=== PATIENT | female | born 1950 | race Caucasian/White ===

== ENCOUNTER 2016-09-10 10:40 | Outpatient (CLI) | payer OTHER | END 2016-09-10 10:41 | disposition home or self-care (01) | LOC: LAB.WCP 10:40 | PROVIDERS: ATTEND Physician Assistant Medical | DX: E03.9 Hypothyroidism, unspecified (principal) | CPT/HCPCS: 36415; 84443 ==

== ENCOUNTER 2016-11-01 12:11 | Outpatient (CLI) | payer MEDICARE, OTHER | END 2016-11-01 12:12 | disposition critical access hospital (66) | LOC: EMS 12:11 | PROVIDERS: ATTEND Surgery | DX: S01.81XA Laceration without foreign body of other part of head, initial encounter (principal); W01.198A Fall on same level from slipping, tripping and stumbling with subsequent striking against other object, initial encounter; Y93.01 Activity, walking, marching and hiking | CPT/HCPCS: A0425; A0429 ==

== ENCOUNTER 2016-11-01 12:25 | Emergency (ER) | payer MEDICARE, OTHER ==
--- NOTE | 2016-11-01 12:33 | ED Physician Documentation ---
PD HPI Fall - Stated complaint Stated Complaint: GLF - History obtained from History obtained from: Patient - History of Present Illness Mechanism of injury: Slipped. No: Syncope Fall distance: Standing position Where injury occurred: Other ([facility]) Timing - onset: Today ([facility]) Injury(ies) location: Face, Right Upper Extremity (wrist), Right Lower Extremity (knee). No: Chest, Abdomen Quality of pain: Pain Associated symptoms: No: LOC, AMS, Nausea / vomiting Worsens with: Movement, Palpation Contributing factors: No: Anticoagulated, Intoxicated Similar symptoms before: Has not had sx before Recently seen: Not recently seen Review of Systems Eyes: denies: Loss of vision, Decreased vision GI: denies: Nausea, Vomiting Skin: reports: Abrasion (s) Neurologic: denies: Focal weakness, Numbness, Confused, Altered mental status, Headache (just facial pain) PD PAST MEDICAL HISTORY - Past Medical History Cardiovascular: Hypertension Neuro: TIA - Past Surgical History Past Surgical History: Yes General: Cholecystectomy, Appendectomy /[employer] JOBS: Hysterectomy - Present Medications Home Medications: Ambulatory Orders Medication Instructions Recorded Confirmed Aspirin [Aspir 81] 81 mg PO DAILY 08/09/13 11/01/16 Propranolol HCl 40 mg PO DAILY 08/09/13 11/01/16 HYDROcod/ACETAM 5/325 [[place] 5/325] 1 tab PO Q6H PRN #15 tablet 11/01/16 Levothyroxine Sodium [Synthroid] 25 mcg PO DAILY 11/01/16 11/01/16 busPIRone [Buspar] 5 mg PO DAILY 11/01/16 11/01/16 - Allergies Allergies/Adverse Reactions: Allergies Allergy/AdvReac Type Severity Reaction Status Date / Time Sulfa (Sulfonamide Allergy Unknown Verified 08/09/13 09:06 Antibiotics) - Social History Does the pt smoke?: No Smoking Status: Never smoker Does the pt drink ETOH?: Yes Does the pt have substance abuse?: No - POLST Patient has POLST: No PD ED PE NORMAL - Vitals Vital signs reviewed: Yes - General General: Alert and oriented X 3, Well developed/nourished - HEENT HEENT: Other (abrasion forehead with local tenderness) - Neck Neck: Supple, no meningeal sign, No bony TTP, No adenopathy - Cardiac Cardiac: RRR, No murmur - Respiratory Respiratory: Clear bilaterally, Other (no chestwall tenderness) - Abdomen Abdomen: Soft, Non tender, No organomegaly - Back Back: No CVA TTP, No spinal TTP - Derm Derm: Normal color, Warm and dry - Extremities Extremities: Other (right wrist with tenderness dorsally, no limited ROM. Right knee with anterior swelling and effusion, with limited flexion, but no bony deformity. No gross laxity with ligament testing. 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, No motor deficit, No sensory deficit, Normal speech - Psych Psych: Normal mood, Normal affect Results - Vitals Vitals: Vital Signs - 24 hr 11/01/16 13:41 Heart Rate 66 Respiratory 20 Rate O2 Saturation 99 Oxygen O2 Source Room air - Rads (name of study) knee xray Radiology: Prelim report reviewed (normal) wrist xray Radiology: Prelim report reviewed (normal) PD MEDICAL DECISION MAKING - ED course Complexity details: reviewed results, considered differential, d/w patient Departure - Departure Disposition: 01 Home, Self Care Clinical Impression: Contusion of forehead Qualifiers: Encounter type: initial encounter Qualified Code(s): S00.83XA - Contusion of other part of head, initial encounter Right wrist sprain Qualifiers: Encounter type: initial encounter Qualified Code(s): S63.501A - Unspecified sprain of right wrist, initial encounter Contusion of right knee Qualifiers: Encounter type: initial encounter Qualified Code(s): S80.01XA - Contusion of right knee, initial encounter Condition: Stable Record reviewed to determine appropriate education?: Yes Instructions: ED Effusion Knee, ED Sprain Wrist, ED Contusion Face Follow-Up: Bhumika Rosales PA-C [Primary Care Provider] - Prescriptions: HYDROcod/ACETAM 5/325 [[place] 5/325] 1 tab PO Q6H PRN #15 tablet PRN Reason: Pain Comments: A circular towels to the face for swelling. Apply antibiotic ointment to the abrasions 2-3 times a day after cleaning with soap and water. He likely has local headache and some lightheadedness at times related to the injury. For the wrist, gentle range of motion is good. For the knee you can use an Mark wrap to help reduce swelling. Typically the effusion reduces after several days to week. Range of motion and use of it as able. Tylenol or ibuprofen if needed for pains. Add hydrocodone if needed. Follow-up with your primary care in for 5 days if not improved. Discharge Date/Time: 11/01/16 14:16
[2016-11-01 12:35] VITALS: BP 154/75
[2016-11-01] MEDS ORDERED: TETANUS/DIPHTHERIA/PERTUSSIS 0.5 ML SYRINGE IM ONE ×2 (12:40→13:02)
[2016-11-01] MEDS ORDERED: ACETAMINOPHEN 325 MG TABLET PO STA (13:40)
[2016-11-01] MEDS ORDERED: IBUPROFEN 600 MG TABLET PO STA (13:40)
--- NOTE | 2016-11-01 13:44 | XRAY Preliminary Report ---
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 No acute frac ture or subluxation. [facility] SITE ID: [id number]
--- NOTE | 2016-11-01 13:47 | XRAY Report ---
EXAM: RIGHT WRIST RADIOGRAPHY EXAM DATE: 11/01/2016 01:16 PM. CLINICAL HISTORY: Fall and caught fall with hands. COMPARISON: None. TECHNIQUE: 4 views. FINDINGS: Bones: There is sclerosis and spurring at the first carpal metacarpal joint. No cortical step-off or acute fracture. Joints: There is moderate joint space narrowing of the first carpal metacarpal joint. Soft Tissues: No abnormal foreign body. 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 No acute frac ture or subluxation. [facility] Referring Provider Line: [phone] SITE ID: [id number]
[2016-11-01] MEDS ORDERED: IBUPROFEN 600 MG TABLET PO ONE (13:48)
[2016-11-01] MEDS ORDERED: ACETAMINOPHEN 325 MG TABLET PO ONE (13:48)
--- NOTE | 2016-11-01 13:48 | XRAY Preliminary Report ---
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 No fracture or subluxation. [facility] SITE ID: [id number]
--- NOTE | 2016-11-01 13:51 | XRAY Report ---
EXAM: RIGHT KNEE RADIOGRAPHY EXAM DATE: 11/01/2016 01:31 PM. CLINICAL HISTORY: Accidental fall onto hands/knees. COMPARISON: None. TECHNIQUE: 4 views. FINDINGS: Bones: There is chronic mild/moderate spurring of the medial and lateral femoral condyle. No fracture . No lytic or destructive bone lesion. Joints: Joint space and alignment appear satisfactory. Soft Tissues: No abnormal soft tissue calcification. 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 No fracture or subluxation. [facility] Referring Provider Line: [phone] SITE ID: [id number]
== END 2016-11-01 14:16 | disposition home or self-care (01) ==
LOC: EDUNIT# → ED 12:25
DX: S00.83XA Contusion of other part of head, initial encounter (principal); S63.501A Unspecified sprain of right wrist, initial encounter; S80.01XA Contusion of right knee, initial encounter; W18.30XA Fall on same level, unspecified, initial encounter; Y93.01 Activity, walking, marching and hiking; Y92.830 Public park as the place of occurrence of the external cause; Z23 Encounter for immunization
CPT/HCPCS: 73110; 73564; 90471; 90715; 99283; A9270

== ENCOUNTER 2016-11-19 17:56 | Outpatient (CLI) | payer OTHER, MEDICARE ==
--- NOTE | 2016-11-19 20:01 | CT Preliminary Report ---
Exam: CT Head W/O IMPRESSION: No acute intracranial CT abnormality. [facility] SITE ID: [id number]
--- NOTE | 2016-11-19 20:03 | CT Report ---
EXAM: CT HEAD EXAM DATE: 11/19/2016 07:25 PM. CLINICAL HISTORY: HEADACHE. COMPARISON: None. TECHNIQUE: Multiaxial CT images were obtained from the foramen magnum to the vertex. IV contrast: Non e. Reformats: Coronal. In accordance with CT protocol optimization, one or more of the following dose reduction techniques w ere utilized for this exam: automated exposure control, adjustment of mA and/or KV based on patient s ize, or use of iterative reconstructive technique. FINDINGS: Parenchyma: No intraparenchymal hemorrhage. No evidence of mass, midline shift, or CT findings of inf arction. Murry-white differentiation is distinct. Extraaxial Spaces: Normal for age. No subdural or epidural collections identified. Ventricles: Normal in size and position. Sinuses: Imaged paranasal sinuses, orbits, and mastoids show no significant abnormality. Bones: No evidence of fracture or calvarial defect. Other: There is mild right frontal scalp soft tissue swelling. IMPRESSION: No acute intracranial CT abnormality. [facility] Referring Provider Line: [phone] SITE ID: [id number]
== END 2016-11-19 17:57 | disposition home or self-care (01) ==
LOC: DI 17:56
PROVIDERS: ATTEND Physician Assistant Medical
DX: R51 Headache (principal)
CPT/HCPCS: 70450

== ENCOUNTER 2017-03-17 08:20 | Outpatient (CLI) | payer OTHER, MEDICARE ==
[2017-03-17 13:05] LABS: BASOPHILS # (AUTO) 0.1 10^3/uL (0.0-0.1); EOSINOPHILS # (AUTO) 0.1 10^3/uL (0.0-0.7); EOSINOPHILS % (AUTO) 2.4 %; HGB - HEMOGLOBIN 13.6 g/dL (12.0-16.0); LYMPHOCYTES # (AUTO) 1.6 10^3/uL (1.5-3.5); LYMPHOCYTES % (AUTO) 32.1 %; MEAN CORPUSCULAR HEMOGLOBIN 29.6 pg (27.0-31.0); MEAN CORPUSCULAR HGB CONC 33.9 g/dL (32.0-36.0); MEAN CORPUSCULAR VOLUME 87.2 fL (81.0-99.0); MEAN PLATELET VOLUME 8.9 fL (7.9-10.8); MONOCYTES # (AUTO) 0.3 10^3/uL (0.0-1.0); MONOCYTES % (AUTO) 6.4 %; NEUTROPHILS # (AUTO) 2.9 10^3/uL (1.5-6.6); NEUTROPHILS % (AUTO) 58.1 %; PLT - PLATELET COUNT 227 10^3/uL (130-450); RED BLOOD COUNT 4.61 10^6/uL (4.20-5.40); RED CELL DISTRIBUTION WIDTH 13.2 % (12.0-15.0)
[2017-03-17 13:34] LABS: ALBUMIN/GLOBULIN RATIO 1.3 (1.0-2.2); ALKALINE PHOSPHATASE 123 IU/L (42-121); ALT ALANINE AMINOTRANSFERASE 36 IU/L (10-60); AST ASPARTATE AMINOTRANSFERASE 27 IU/L (10-42); BILIRUBIN,TOTAL 0.6 mg/dL (0.2-1.0); BUN - BLOOD UREA NITROGEN 15 mg/dL (6-20); CALCIUM 9.4 mg/dL (8.5-10.3); CARBON DIOXIDE - CO2 24 mmol/L (21-32); CHLORIDE 107 mmol/L (101-111); CHOL/HDL RATIO 4.8 (<4.4); CHOLESTEROL 207 mg/dL; CREATININE 0.9 mg/dL (0.4-1.0); GFR - MDRD 63 (>89); GLUCOSE 105 mg/dL (70-100); HDL CHOLESTEROL 43 mg/dL; LDL CHOLESTEROL,CALCULATED 140 mg/dL; LDL/HDL RATIO 3.3 (<4.4); SODIUM 139 mmol/L (135-145); TOTAL PROTEIN 7.1 g/dL (6.7-8.2); VLDL CHOLESTEROL 24 mg/dL
== END 2017-03-17 08:21 | disposition home or self-care (01) ==
LOC: LAB.WCP 08:20
PROVIDERS: ATTEND Physician Assistant Medical
DX: E78.5 Hyperlipidemia, unspecified (principal); E03.9 Hypothyroidism, unspecified; K21.9 Gastro-esophageal reflux disease without esophagitis
CPT/HCPCS: 36415; 80053; 80061; 84443; 85025

== ENCOUNTER 2017-04-14 08:00 | Outpatient (CLI) | payer OTHER, MEDICARE | END 2017-04-14 08:01 | disposition home or self-care (01) | LOC: LAB.WCP 08:00 | PROVIDERS: ATTEND Physician Assistant Medical | DX: E03.9 Hypothyroidism, unspecified (principal) | CPT/HCPCS: 36415; 84443 ==

== ENCOUNTER 2018-06-08 08:00 | Outpatient (CLI) | payer OTHER, MEDICARE ==
[2018-06-08 15:40] LABS: CHOL/HDL RATIO 4.3 (<4.4); CHOLESTEROL 232 mg/dL; HDL CHOLESTEROL 54 mg/dL; LDL CHOLESTEROL,CALCULATED 150 mg/dL; LDL/HDL RATIO 2.8 (<4.4); VLDL CHOLESTEROL 28 mg/dL
[2018-06-09 09:10] LABS: ALBUMIN/GLOBULIN RATIO 1.3 (1.0-2.2); ALKALINE PHOSPHATASE 192 IU/L (42-121); ALT ALANINE AMINOTRANSFERASE 131 IU/L (10-60); AST ASPARTATE AMINOTRANSFERASE 104 IU/L (10-42); BILIRUBIN,TOTAL 0.8 mg/dL (0.2-1.0); BUN - BLOOD UREA NITROGEN 18 mg/dL (6-20); CALCIUM 11.1 mg/dL (8.5-10.3); CARBON DIOXIDE - CO2 25 mmol/L (21-32); CHLORIDE 105 mmol/L (101-111); CREATININE 0.9 mg/dL (0.4-1.0); GFR - MDRD 62 (>89); GLUCOSE 85 mg/dL (70-100); SODIUM 138 mmol/L (135-145); TOTAL PROTEIN 7.1 g/dL (6.7-8.2)
[2018-06-09 09:12] LABS: BASOPHILS % (AUTO) 0.9 %; EOSINOPHILS # (AUTO) 0.1 10^3/uL (0.0-0.7); EOSINOPHILS % (AUTO) 2.9 %; HGB - HEMOGLOBIN 13.1 g/dL (12.0-16.0); LYMPHOCYTES # (AUTO) 1.4 10^3/uL (1.5-3.5); LYMPHOCYTES % (AUTO) 32.6 %; MEAN CORPUSCULAR HEMOGLOBIN 28.6 pg (27.0-31.0); MEAN CORPUSCULAR VOLUME 86.8 fL (81.0-99.0); MEAN PLATELET VOLUME 9.4 fL (7.9-10.8); MONOCYTES # (AUTO) 0.3 10^3/uL (0.0-1.0); MONOCYTES % (AUTO) 6.1 %; NEUTROPHILS # (AUTO) 2.4 10^3/uL (1.5-6.6); NEUTROPHILS % (AUTO) 57.5 %; PLT - PLATELET COUNT 314 10^3/uL (130-450); RED BLOOD COUNT 4.57 10^6/uL (4.20-5.40); RED CELL DISTRIBUTION WIDTH 14.2 % (12.0-15.0); WHITE BLOOD COUNT 4.2 x10^3/uL (4.8-10.8)
[2018-06-09 13:42] LABS: HEPATITIS C ANTIBODY NON-REACTIVE (NON-REACTIVE)
== END 2018-06-08 08:01 | disposition home or self-care (01) ==
LOC: LAB.WCP 08:00
PROVIDERS: ATTEND Physician Assistant Medical
DX: E78.5 Hyperlipidemia, unspecified (principal); E03.9 Hypothyroidism, unspecified; Z11.59 Encounter for screening for other viral diseases; K21.9 Gastro-esophageal reflux disease without esophagitis
CPT/HCPCS: 36415; 80053; 80061; 83721; 84443; 85025; 86803

== ENCOUNTER 2018-08-25 12:12 | Outpatient (CLI) | payer OTHER, MEDICARE ==
[2018-08-25 19:09] LABS: CALCIUM 11.9 mg/dL (8.5-10.3)
[2018-08-25 19:10] LABS: ALBUMIN 4.1 g/dL (3.2-5.5); ALBUMIN/GLOBULIN RATIO 1.1 (1.0-2.2); TOTAL PROTEIN 7.8 g/dL (6.7-8.2)
== END 2018-08-25 12:13 | disposition home or self-care (01) ==
LOC: LAB.WCP 12:12
PROVIDERS: ATTEND Physician Assistant Medical
DX: R74.8 Abnormal levels of other serum enzymes (principal)
CPT/HCPCS: 36415; 80053

== ENCOUNTER 2018-09-03 09:36 | Outpatient (CLI) | payer OTHER, MEDICARE | END 2018-09-03 09:37 | disposition home or self-care (01) | LOC: LAB.WCP 09:36 | PROVIDERS: ATTEND Physician Assistant Medical | DX: R74.8 Abnormal levels of other serum enzymes (principal) | CPT/HCPCS: 36415; 86704; 86709 ==

== ENCOUNTER 2018-09-06 11:34 | Outpatient (CLI) | payer OTHER, MEDICARE | END 2018-09-06 11:35 | disposition critical access hospital (66) | LOC: EMS 11:34 | PROVIDERS: ATTEND Surgery | DX: R11.2 Nausea with vomiting, unspecified (principal) | CPT/HCPCS: A0425; A0429 ==

== ENCOUNTER 2018-09-06 11:46 | Emergency (ER) | payer OTHER, MEDICARE ==
[2018-09-06 12:04] LABS: GLUCOSE, URINE (UA) NEGATIVE (NEGATIVE); KETONES,URINE (UA) NEGATIVE (NEGATIVE); LEUKOCYTE ESTERASE, URINE TRACE (NEGATIVE); NITRITE,URINE NEGATIVE (NEGATIVE); OCCULT BLOOD,URINE NEGATIVE (NEGATIVE); PROTEIN,URINE 30 mg/dL (NEGATIVE); UROBILINOGEN,URINE 1 (NORMAL) E.U./dL (NORMAL)
[2018-09-06 12:09] LABS: BASOPHILS % (AUTO) 0.5 %; EOSINOPHILS % (AUTO) 0.2 %; HGB - HEMOGLOBIN 11.7 g/dL (12.0-16.0); LYMPHOCYTES # (AUTO) 1.1 10^3/uL (1.5-3.5); LYMPHOCYTES % (AUTO) 12.9 %; MEAN CORPUSCULAR HEMOGLOBIN 27.7 pg (27.0-31.0); MEAN CORPUSCULAR HGB CONC 30.8 g/dL (32.0-36.0); MEAN CORPUSCULAR VOLUME 89.8 fL (81.0-99.0); MONOCYTES # (AUTO) 0.7 10^3/uL (0.0-1.0); MONOCYTES % (AUTO) 8.2 %; NEUTROPHILS # (AUTO) 6.8 10^3/uL (1.5-6.6); NEUTROPHILS % (AUTO) 77.5 %; PLT - PLATELET COUNT 362 10^3/uL (130-450); RED BLOOD COUNT 4.23 10^6/uL (4.20-5.40); RED CELL DISTRIBUTION WIDTH 12.9 % (12.0-15.0); WHITE BLOOD COUNT 8.8 x10^3/uL (4.8-10.8)
[2018-09-06 12:10] LABS: BILIRUBIN,URINE SMALL (NEGATIVE); CLARITY,URINE SL. CLOUDY (CLEAR); ICTOTEST,URINE POSITIVE
[2018-09-06 12:16] LABS: AMORPHOUS SEDIMENT,UR Few /LPF; BACTERIA,URINE Few /HPF (None Seen); RBC,URINE 0-5 /HPF (0-5); SQUAMOUS EPITHELIAL CELL,UR FEW Squamous (<= Few)
[2018-09-06 12:26] LABS: ALBUMIN 3.8 g/dL (3.2-5.5); ALBUMIN/GLOBULIN RATIO 0.9 (1.0-2.2); BILIRUBIN,TOTAL 1.4 mg/dL (0.2-1.0); CALCIUM 10.7 mg/dL (8.5-10.3); CREATININE 1.3 mg/dL (0.4-1.0); TOTAL PROTEIN 7.9 g/dL (6.7-8.2)
[2018-09-06] MEDS ORDERED: SODIUM CHLORIDE 0.9% 1,000 ML IV ONE ×2 (12:59)
[2018-09-06] MEDS ORDERED: ONDANSETRON 4 MG/2 ML VIAL IVP STA (12:59)
--- NOTE | 2018-09-06 13:20 | ED Physician Documentation ---
History of Present Illness - Stated complaint Stated Complaint: VOMITING - Chief complaint Chief Complaint: Abd Pain - History obtained from History obtained from: Patient, Family - History of Present Illness Pain level max: 2 Pain level now: 1 - Additonal information Additional information: 67-year-old female presents to the emergency department with nausea and vomiting for the past 4 days. Has had elevated liver function tests for the past several weeks and is being seen by her doctor for this. No imaging done to this point. Has had diarrhea for the past 3 to 4 days as well. No fevers. Has not taken anything. Worse with eating, nothing makes it better. No changes to her medications. No recent travel. No recent antibiotics. 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 - Present Medications Home Medications: Ambulatory Orders Medication Instructions Recorded Confirmed Aspirin [Aspir 81] 81 mg PO DAILY 08/09/13 11/01/16 Propranolol HCl 40 mg PO DAILY 08/09/13 11/01/16 HYDROcod/ACETAM 5/325 [[place] 5/325] 1 tab PO Q6H PRN #15 tablet 11/01/16 Levothyroxine Sodium [Synthroid] 25 mcg PO DAILY 11/01/16 11/01/16 busPIRone [Buspar] 5 mg PO DAILY 11/01/16 11/01/16 Ondansetron Odt [Zofran] 4 mg TL Q6H PRN #10 tablet 09/06/18 Promethazine [Phenergan] 25 mg PO Q6H PRN #10 tab 09/06/18 - Allergies Allergies/Adverse Reactions: Allergies Allergy/AdvReac Type Severity Reaction Status Date / Time Sulfa (Sulfonamide Allergy Unknown Verified 09/06/18 11:52 Antibiotics) - Social History Does the pt smoke?: No Smoking Status: Never smoker Does the pt drink ETOH?: Yes Does the pt have substance abuse?: Yes Substance Use and Type: Marijuana - Immunizations Immunizations are current?: No Immunizations: TDAP >10years/unknown - POLST Patient has POLST: No PD ED PE NORMAL - Vitals Vital signs reviewed: Yes - General General: Alert and oriented X 3, No acute distress - HEENT HEENT: PERRL - Neck Neck: Supple, no meningeal sign - Cardiac Cardiac: RRR - Respiratory Respiratory: No respiratory distress, Clear bilaterally - Abdomen Abdomen: Soft, Non distended, Other (Mild tenderness palpation right upper quadrant. Negative Mir sign) - Back Back: No spinal TTP - Derm Derm: Warm and dry - Extremities Extremities: No edema - Neuro Neuro: Alert and oriented X 3 - Psych Psych: Normal mood, Normal affect Results - Vitals Vitals: Vital Signs - 24 hr 09/06/18 09/06/18 09/06/18 11:49 15:25 16:06 Temperature 36.9 C Heart Rate 59 L 63 69 Respiratory 16 18 16 Rate Blood Pressure 158/93 H 144/80 H 140/93 H O2 Saturation 100 100 99 Oxygen O2 Source Room air - Labs Labs: Laboratory Tests 09/06/18 09/06/18 09/06/18 11:50 12:03 12:03 WBC 8.8 RBC 4.23 Hgb 11.7 L Hct 38.0 MCV 89.8 MCH 27.7 MCHC 30.8 L RDW 12.9 Plt Count 362 MPV 11.0 H Neut # (Auto) 6.8 H Lymph # (Auto) 1.1 L [place] # (Auto) 0.7 Eos # (Auto) 0.0 Baso # (Auto) 0.0 Absolute Nucleated RBC 0.00 Nucleated RBC % 0.0 Sodium 139 Potassium 3.5 Chloride 104 Carbon Dioxide 24 Anion Gap 11.0 BUN 17 Creatinine 1.3 H Estimated GFR (MDRD) 41 L Glucose 120 H Calcium 10.7 H Total Bilirubin 1.4 H AST 128 H ALT 192 H Alkaline Phosphatase 265 H Total Protein 7.9 Albumin 3.8 Globulin 4.1 Albumin/Globulin Ratio 0.9 L Lipase 32 Urine Color YELLOW Urine Clarity SL. CLOUDY Urine pH 6.0 Ur Specific [place] 1.015 Urine Protein 30 H Urine Glucose (UA) NEGATIVE Urine Ketones NEGATIVE Urine Occult Blood NEGATIVE Urine Nitrite NEGATIVE Urine Bilirubin SMALL H Urine Urobilinogen 1 (NORMAL) Ur Leukocyte Esterase TRACE H Urine RBC 0-5 Urine WBC 0-3 Ur Squamous Epith Cells FEW Squamous Amorphous Sediment Few Urine Bacteria Few Ur Microscopic Review INDICATED Urine Culture Comments INDICATED - Rads (name of study) CT abd pelvis Radiology: Prelim report reviewed, EMP read contemporaneously, See rad report (Large right hepatic mass with additional smaller hepatic lesions; differential considerations include primary neoplasm with metastases. 2. Small left lung nodule; follow-up chest CT is recommended. ) RUQ US Radiology: Prelim report reviewed, EMP read contemporaneously, See rad report (Multiple hepatic masses concerning for metastatic disease. ) PD MEDICAL DECISION MAKING - ED course Complexity details: reviewed results, re-evaluated patient, considered differential, d/w patient ED course: 67-year-old female presents to the emergency department with vomiting today. History of elevated LFTs. 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 Also has a lung nodule. Discussed the case with her PCP who will follow her up in the office tomorrow. Nausea controlled. Patient is well-appearing, nontoxic. Afebrile. Social work also came and evaluated the patient and the family. Patient and family counseled regarding signs and symptoms for which I believe and urgent re- evaluation would be necessary. Patient with good understanding of and agreement to plan and is comfortable going home at this time This document was made in part using voice recognition software. While efforts are made to proofread this document, sound alike and grammatical errors may occur. Departure - Departure Disposition: 01 Home, Self Care Clinical Impression: Liver mass, Lung nodule Vomiting Qualifiers: Vomiting type: unspecified Vomiting Intractability: non-intractable Nausea presence: with nausea Qualified Code(s): R11.2 - Nausea with vomiting, unspecified Condition: Good Health Concerns: vomiting Plan of Treatment: zofran, oncology referral with PCP Care Goals: control vomiting Assessment: improved Instructions: ED Nausea Vomiting Follow-Up: Bhumika Rosales PA-C [Primary Care Provider] - Tomorrow Prescriptions: Ondansetron Odt [Zofran] 4 mg TL Q6H PRN #10 tablet PRN Reason: Nausea / Vomiting Promethazine [Phenergan] 25 mg PO Q6H PRN #10 tab PRN Reason: Nausea / Vomiting Comments: You need to follow-up with Sunshine Rosales, her office will call you tomorrow morning. She will start the referral process for you. Return if you worsen. You will also need a chest CT as you do have a small lung nodule as well Large right hepatic mass with additional smaller hepatic lesions; differential considerations include primary neoplasm with metastases. 2. Small left lung nodule; follow-up chest CT is recommended. Discharge Date/Time: 09/06/18 16:11
[2018-09-06] MEDS ORDERED: IOVERSOL 320 100 ML VIAL IVP ONE ×2 (13:33→13:45)
--- NOTE | 2018-09-06 14:56 | Ultrasound Report ---
Reason: elevated LFTs, vomiting. Procedure Date: 09/06/2018 Accession Number: [id number] / [id number] Procedure: US - Abdomen Limited CPT Code: FULL RESULT: EXAM: ABDOMEN ULTRASOUND LIMITED, RUQ EXAM DATE: 09/06/2018 02:31 PM. CLINICAL HISTORY: Elevated LFTs, vomiting. COMPARISON: ABDOMEN/PELVIS W/ 09/06/2018 1:40 PM. TECHNIQUE: Real-time scanning was performed with static images obtained. FINDINGS: Liver: The liver contains multiple masses throughout both lobes of the liver; the largest individual mass as seen by ultrasound measures 5.5 x 4.4 cm. The liver is enlarged measuring at least 23.4 cm. Main portal vein flow: Hepatopetal. Gallbladder: Surgically absent. Biliary System: CBD measures 5 mm. No intrahepatic or extrahepatic ductal dilatation. Other: None. IMPRESSION: Multiple hepatic masses concerning for metastatic disease. CRITICAL RESULT: The findings were discussed with Dr. Mathew on 09/06/2018 at 12:55 PM. [facility]
--- NOTE | 2018-09-06 15:03 | CT Report ---
Reason: vomiting, abd pain Procedure Date: 09/06/2018 Accession Number: [id number] / [id number] Procedure: CT - Abdomen/Pelvis W CPT Code: FULL RESULT: EXAM: CT ABDOMEN AND PELVIS EXAM DATE: 09/06/2018 01:53 PM. CLINICAL HISTORY: Right sided pain, elevated liver enzymes. COMPARISONS: None. TECHNIQUE: Routine helical CT imaging was performed through the abdomen and pelvis. IV contrast: 100 cc Optiray 320. Enteric contrast: No. Reconstructions: Coronal and sagittal. In accordance with CT protocol optimization, one or more of the following dose reduction techniques were utilized for this exam: automated exposure control, adjustment of mA and/or KV based on patient size, or use of iterative reconstructive technique. FINDINGS: Lung Bases: Subpleural density in left posterior sulcus measuring 7.0 mm on series 3 image 13. Otherwise clear. Calcification adjacent to right posterior mediastinum probably due to previous inflammatory disease. Liver: Large heterogeneous mass arising from the right lobe inferiorly and measuring as much as 16.1 x 14.5 x 11.8 cm. Additional lesions measuring as much as 3.8 cm on series 3 image 18. Gallbladder/Bile Ducts: Surgically absent. No ductal dilation. Spleen: Normal. Pancreas: Normal. Adrenal Glands: Normal. Kidneys: Normal. No masses or hydronephrosis. Peritoneal Cavity/Bowel: Mild colonic diverticulosis. Small amount of infiltration of fat adjacent to the right hepatic lesion with trace fluid tracking away along tissue planes. No other free fluid, free air or adenopathy. No masses or acute inflammatory process. Unremarkable region of appendix. Pelvic Organs: Unremarkable urinary bladder. Absent uterus. Vasculature: No aneurysms or other significant abnormality. Bones: No significant abnormality. Other: None. IMPRESSION: 1. Large right hepatic mass with additional smaller hepatic lesions; differential considerations include primary neoplasm with metastases. 2. Small left lung nodule; follow-up chest CT is recommended. [facility]
[2018-09-06 16:06] VITALS: BP 140/93
== END 2018-09-06 16:11 | disposition home or self-care (01) ==
LOC: EDUNIT# → EDBD → ED 11:46
DX: K76.89 Other specified diseases of liver (principal); R16.0 Hepatomegaly, not elsewhere classified; R91.1 Solitary pulmonary nodule; R11.2 Nausea with vomiting, unspecified; I10 Essential (primary) hypertension; Z79.82 Long term (current) use of aspirin
CPT/HCPCS: 36415; 74177; 76705; 80053; 81001; 83690; 85025; 87086; 96361; 96374; 99283; 99284; Q9967; 81003

== ENCOUNTER 2018-09-10 11:37 | Outpatient (CLI) | payer OTHER, MEDICARE ==
[2018-09-10] MEDS ORDERED: IOVERSOL 320 100 ML VIAL IVP ONE ×2 (12:39→13:40)
--- NOTE | 2018-09-11 15:08 | CT Report ---
Reason: ELEVATED LIVER ENZYMES,PULMONARY NODULE Procedure Date: 09/10/2018 Accession Number: [id number] / [id number] Procedure: CT - CHEST W CPT Code: FULL RESULT: EXAM: CT CHEST EXAM DATE: 09/10/2018 12:45 PM. CLINICAL HISTORY: ELEVATED LIVER ENZYMES,PULMONARY NODULE. COMPARISONS: ABDOMEN/PELVIS W/ 09/06/2018 1:40 PM. TECHNIQUE: Routine helical CT imaging was performed through the chest. IV contrast: 80 cc Optiray 320. Reconstructions: Coronal and sagittal. In accordance with CT protocol optimization, one or more of the following dose reduction techniques were utilized for this exam: automated exposure control, adjustment of mA and/or KV based on patient size, or use of iterative reconstructive technique. FINDINGS: Lungs/Pleura: There is no consolidation or effusion. There is a small calcified granuloma within the right lower lobe (image 23 series 4). There is a 0.3 cm juxtapleural nodule within the left lower lobe (image 43 series 4). There is no evidence of subpleural reticulation or architectural distortion. No central airway abnormalities. No pneumothorax. Mediastinum: Normal. No adenopathy or masses. The heart and great vessels are normal. Bones: Unremarkable. Visualized Abdomen: There are rounded masses within the liver. These are suspicious for metastases. The visualized portions of the upper abdominal organs demonstrate no acute abnormalities. Other: None. IMPRESSION: 1. There is a calcified granuloma within the right lower lobe. 2. There is a 0.3 cm juxtapleural pulmonary nodule within the left lower lobe. This is probably inflammatory. 3. No evidence of metastatic or primary cancer within the chest. No acute pulmonary CT process. 4. Heart size is within normal limits. There are no enlarged thoracic lymph nodes. 5. There are multiple masses within the liver. These are suspicious for metastases. [facility]
== END 2018-09-10 11:38 | disposition home or self-care (01) ==
LOC: DI 11:37
PROVIDERS: ATTEND Physician Assistant Medical
DX: R74.8 Abnormal levels of other serum enzymes (principal); J98.4 Other disorders of lung; R91.1 Solitary pulmonary nodule; R16.0 Hepatomegaly, not elsewhere classified; J84.10 Pulmonary fibrosis, unspecified
CPT/HCPCS: 71260; Q9967

== ENCOUNTER 2019-03-06 15:56 | Outpatient (CLI) | payer OTHER, MEDICARE | END 2019-03-06 15:57 | disposition critical access hospital (66) | LOC: EMS 15:56 | PROVIDERS: ATTEND Surgery | DX: R55 Syncope and collapse (principal); R42 Dizziness and giddiness; K59.00 Constipation, unspecified | CPT/HCPCS: A0425; A0427 ==

== ENCOUNTER 2019-03-06 16:17 | Inpatient (IN) | payer OTHER, MEDICARE ==
[2019-03-06] MEDS ORDERED: SODIUM CHLORIDE 0.9% 1,000 ML IV ONE (16:22)
--- NOTE | 2019-03-06 16:23 | ED Physician Documentation ---
PD HPI SYNCOPE - Stated complaint Stated Complaint: SYNCOPE - History obtained from History obtained from: Patient - History of Present Illness Witnessed: Witnessed (68-year-old woman with liver cancer undergoing treatment at [facility]. She tried a new form of CBD oil today and then she started to become dizzy and weak and passed out briefly at the dinner table. She was unconscious for about a minute. There was no associated shortness of breath or chest pain. No pedal edema. She now feels pretty much back to normal.) Review of Systems Ten Systems: 10 systems reviewed and negative Constitutional: denies: Fever, Chills, Fatigue Cardiac: denies: Chest pain / pressure, Palpitations Respiratory: denies: Dyspnea, Cough GI: denies: Abdominal Pain, Nausea, Vomiting, Diarrhea PD PAST MEDICAL HISTORY - Past Medical History Cardiovascular: Hypertension Respiratory: None Neuro: None Endocrine/Autoimmune: None GI: None COMPRESSOR ASSEMBLER: None : None HEENT: None Psych: Anxiety Musculoskeletal: None Derm: None - Past Surgical History Past Surgical History: Yes General: Cholecystectomy, Appendectomy /COMPRESSOR ASSEMBLER: Hysterectomy - Present Medications Home Medications: Ambulatory Orders Medication Instructions Recorded Confirmed Propranolol HCl 40 mg PO DAILY 08/09/13 03/06/19 HYDROcod/ACETAM 5/325 [[place] 5/325] 1 tab PO Q6H PRN #15 tablet 11/01/16 03/06/19 Levothyroxine Sodium [Synthroid] 25 mcg PO DAILY 11/01/16 03/06/19 busPIRone [Buspar] 5 mg PO DAILY 11/01/16 03/06/19 Ondansetron Odt [Zofran] 4 mg TL Q6H PRN #10 tablet 09/06/18 03/06/19 Cyclobenzaprine HCl 5 mg PO TID PRN 03/06/19 03/06/19 Milk Thistle Seed Extract [Milk 175 mg ORAL DAILY 03/06/19 03/06/19 Thistle] - Allergies Allergies/Adverse Reactions: Allergies Allergy/AdvReac Type Severity Reaction Status Date / Time Sulfa (Sulfonamide Allergy Unknown Verified 03/06/19 16:25 Antibiotics) codeine AdvReac Nausea Verified 03/06/19 16:25 - Social History Does the pt smoke?: No Smoking Status: Never smoker Does the pt drink ETOH?: Yes Does the pt have substance abuse?: Yes - Immunizations Immunizations are current?: No Immunizations: TDAP >10years/unknown - POLST Patient has POLST: No PD ED PE NORMAL - Vitals Vital signs reviewed: Yes - General General: Other (Well-appearing woman slightly slow to answer questions but alert and oriented and in no distress) - HEENT HEENT: PERRL, EOMI - Neck Neck: Supple, no meningeal sign, No bony TTP - Cardiac Cardiac: RRR, No murmur - Respiratory Respiratory: No respiratory distress, Clear bilaterally - Abdomen Abdomen: Normal bowel sounds, Soft, Non tender - Back Back: No CVA TTP, No spinal TTP - Derm Derm: Normal color, Warm and dry - Extremities Extremities: No edema, No calf tenderness / cord - Neuro Neuro: Alert and oriented X 3, No motor deficit, No sensory deficit, Normal speech Results - Vitals Vitals: Vital Signs - 24 hr 03/06/19 03/06/19 03/06/19 16:18 16:30 18:04 Temperature 37.3 C Heart Rate 79 74 Heart Rate [ 78 Sitting] Heart Rate [ 80 Standing] Heart Rate [ 76 Supine] Respiratory 15 18 Rate Blood Pressure 109/60 110/57 L Blood Pressure 114/61 [Sitting] Blood Pressure 97/52 L [Standing] Blood Pressure 114/62 [Supine] O2 Saturation 97 98 03/06/19 03/06/19 18:06 19:56 Temperature Heart Rate 73 Heart Rate [ 80 Sitting] Heart Rate [ 82 Standing] Heart Rate [ 69 Supine] Respiratory 18 Rate Blood Pressure 106/57 L Blood Pressure 107/66 [Sitting] Blood Pressure 98/63 [Standing] Blood Pressure 97/58 L [Supine] O2 Saturation 94 Oxygen O2 Source Room air - EKG (time done) 1623 Rate: Rate (enter#) (76) Rhythm: NSR Bertram: Normal QRS: Low voltage Ischemia: Normal ST segments Computer interpretation: Agree with computer - Labs Labs: Microbiology 03/06/19 17:05 Occult Blood - Final Stool Laboratory Tests 03/06/19 03/06/19 03/06/19 16:40 16:40 16:40 WBC 10.4 RBC 3.33 L Hgb 8.8 L Hct 29.3 L MCV 88.0 MCH 26.4 L MCHC 30.0 L RDW 15.8 H Plt Count 339 MPV 10.3 Neut # (Auto) 8.9 H Lymph # (Auto) 0.4 L [place] # (Auto) 1.0 Eos # (Auto) 0.0 Baso # (Auto) 0.0 Absolute Nucleated RBC 0.00 Nucleated RBC % 0.0 Sodium 133 L Potassium 3.9 Chloride 99 L Carbon Dioxide 21 Anion Gap 13.0 BUN 15 Creatinine 1.2 H Estimated GFR (MDRD) 45 L Glucose 117 H Lactic Acid 1.6 Calcium 8.6 Magnesium 1.7 Total Bilirubin 1.2 H AST 133 H ALT 85 H Alkaline Phosphatase 123 H Total Protein 6.6 L Albumin 2.7 L Globulin 3.9 Albumin/Globulin Ratio 0.7 L Lipase 20 L Ethyl Alcohol < 5.0 - Rads (name of study) CT A/P Radiology: EMP read contemporaneously (Overall increase in tumor burden, tumor infiltration and rojelio metastasis, no evidence of active bleeding.) PD MEDICAL DECISION MAKING - ED course ED course: 68-year-old woman presents with syncope today, initial evaluation suggested it may have been related to the new CBD product. That said she was found to be fairly anemic with a hemoglobin of 8. It is been about 6 months since her last set of labs here so we obtain the most recent set of labs from [facility], and on January 26 of this year she had a hemoglobin of 11.1. She is undergoing radiofrequency ablation of a liver tumor. She is guaiac negative. This makes me wonder if she might have intra-abdominal bleeding from the radiofrequency ablation. A CT was done. CT did not show any evidence of active bleeding. She was still fairly dizzy when we got her up, she was not technically orthostatic, but she dropped her systolic blood pressure by 17 points. She was a two-person assist to do that because of weakness and unsteadiness. After second liter of IV fluids still had some lowish blood pressures and spoke with Dr. Alejandra for admission. Departure - Departure Disposition: ED Place in Observation Clinical Impression: Syncope Qualifiers: Syncope type: unspecified Qualified Code(s): R55 - Syncope and collapse Liver cancer Qualifiers: Liver malignancy type: unspecified liver malignancy Qualified Code(s): C22.9 - Malignant neoplasm of liver, not specified as primary or secondary Condition: Fair Discharge Date/Time: 03/06/19 21:20
[2019-03-06 16:47] LABS: BASOPHILS % (AUTO) 0.2 %; EOSINOPHILS % (AUTO) 0.1 %; HGB - HEMOGLOBIN 8.8 g/dL (12.0-16.0); LYMPHOCYTES # (AUTO) 0.4 10^3/uL (1.5-3.5); LYMPHOCYTES % (AUTO) 3.9 %; MEAN CORPUSCULAR HEMOGLOBIN 26.4 pg (27.0-31.0); MEAN PLATELET VOLUME 10.3 fL (7.9-10.8); MONOCYTES % (AUTO) 9.3 %; NEUTROPHILS # (AUTO) 8.9 10^3/uL (1.5-6.6); NEUTROPHILS % (AUTO) 85.3 %; PLT - PLATELET COUNT 339 10^3/uL (130-450); RED BLOOD COUNT 3.33 10^6/uL (4.20-5.40); RED CELL DISTRIBUTION WIDTH 15.8 % (12.0-15.0); WHITE BLOOD COUNT 10.4 x10^3/uL (4.8-10.8)
[2019-03-06 17:01] LABS: ALBUMIN 2.7 g/dL (3.2-5.5); ALBUMIN/GLOBULIN RATIO 0.7 (1.0-2.2); ALKALINE PHOSPHATASE 123 IU/L (42-121); ALT ALANINE AMINOTRANSFERASE 85 IU/L (10-60); AST ASPARTATE AMINOTRANSFERASE 133 IU/L (10-42); BILIRUBIN,TOTAL 1.2 mg/dL (0.2-1.0); BUN - BLOOD UREA NITROGEN 15 mg/dL (6-20); CALCIUM 8.6 mg/dL (8.5-10.3); CARBON DIOXIDE - CO2 21 mmol/L (21-32); CHLORIDE 99 mmol/L (101-111); CREATININE 1.2 mg/dL (0.4-1.0); GFR - MDRD 45 (>89); GLUCOSE 117 mg/dL (70-100); LIPASE 20 U/L (22-51); MAGNESIUM 1.7 mg/dL (1.7-2.8); SODIUM 133 mmol/L (135-145); TOTAL PROTEIN 6.6 g/dL (6.7-8.2)
[2019-03-06] MEDS ORDERED: IOVERSOL 320 100 ML VIAL IVP ONE ×2 (17:14→17:41)
--- NOTE | 2019-03-06 18:28 | CT Report ---
Reason: IV only, syncope/anemia p RFA liver CA Procedure Date: 03/06/2019 Accession Number: [id number] / [id number] Procedure: CT - Abdomen/Pelvis W CPT Code: Final Report FULL RESULT: EXAM: CT ABDOMEN AND PELVIS EXAM DATE: 03/06/2019 05:39 PM. CLINICAL HISTORY: Syncope/anemia after Y-90 treatment for liver cancer 1 week ago. COMPARISONS: ABDOMEN/PELVIS W/ 09/06/2018 1:40 PM. TECHNIQUE: Routine helical CT imaging was performed through the abdomen and pelvis. IV contrast: OPTI 320 90ML. Enteric contrast: No. Reconstructions: Coronal and sagittal. In accordance with CT protocol optimization, one or more of the following dose reduction techniques were utilized for this exam: automated exposure control, adjustment of mA and/or KV based on patient size, or use of iterative reconstructive technique. FINDINGS: Lung Bases: Mild dependent atelectasis. Liver: Compared to 09/06/2018 overall increased size and number of numerous hepatic lesions, many conglomerate, for example: 1. Left hepatic lobe segment 4A, 6.7 x 5.3 cm (3/16), previously 4.7 x 4.6 cm. 2. Caudate lobe, 4.1 x 4.1 cm, new. The dominant conglomerate mass in the inferior right hepatic lobe has slightly decreased in size, with the superiormost component measuring 9.1 x 8.2 cm in transverse dimension (3/38) compared to previous 9.4 x 9.2 cm at equivalent level, and the conglomerate mass measuring 14.2 cm in overall craniocaudal extent (5/20) compared to previous 16.0 cm. Unchanged soft tissue stranding and nodularity along the inferomedial margin of the dominant mass, compatible with tumor infiltration. Gallbladder/Bile Ducts: Post cholecystectomy. No biliary ductal dilatation. Spleen: Normal. Pancreas: Normal. Adrenal Glands: Normal. Kidneys and Ureters: Normal. No stones, hydronephrosis, or hydroureter. Peritoneal Cavity/Bowel: Interval increased size of multiple mildly enlarged periportal nodes, for example a 2.0 x 1.4 cm laila hepatis node (3/31), previously 1.2 x 1.2 cm, and a 1.7 x 1.4 cm portacaval node (3/34), previously 1.5 x 1.0 cm. No evidence for bowel obstruction or acute inflammatory process. The appendix is normal. Trace free fluid in the perihepatic region and pelvis. No pneumoperitoneum. Pelvic Organs: Post hysterectomy. The bladder is within normal limits. Vasculature: Mild to moderate atherosclerotic ossifications within the aorta and iliac arteries. The portal veins are patent. Bones: Mild multilevel degenerative disk disease. Severe facet arthropathy at L4-L5 with associated minimal anterolisthesis of L4 on L5. No suspicious lytic or blastic osseous lesion. Other: Unchanged small fat-containing bilateral inguinal hernias. IMPRESSION: 1. Interval overall increased tumor burden within the liver with slightly decreased size of the dominant conglomerate mass in the inferior right hepatic lobe. 2. Unchanged soft tissue stranding and nodularity along the inferomedial margin of the dominant mass, compatible with tumor infiltration. 3. Interval slightly increased size of multiple mildly enlarged periportal lymph nodes, suspicious for rojelio metastasis. RADIA
[2019-03-06] MEDS ORDERED: LACTATED RINGERS 1,000 ML IV STA (18:32)
--- NOTE | 2019-03-06 20:23 | HISTORY & PHYSICAL EXAMINATION ---
Chief Complaint - Chief Complaint Chief Complaint: syncope History of Present Illness - Admitted From Admitted From:: [facility] - History Obtained From Records Reviewed: yes History obtained from: patient and family - History of Present Illness HPI Comment/Other: Patient is a 68 y/o female who presented to the ED with complain of passing out. She was at the dining table with family having a late lunch in celebration of when she felt like her head was hurting and felt heavy. As a result she rested her head on her arms on the table. Her family reports that she was not really responsive after that. When they tried to get her to stand by supporting her on each side, her legs just went limp. She had been tired most of the day and lately. She has poor appetite and appears pale. She has hepatocellular carcinoma and goes to [facility] for most of her care. She had the first radio ablation just before and the last one on Thursday02/28/19. Plan was to follow up in 3 months for reassessment. She has a planned endoscopy at [facility] in the near future. Family reports she is always nauseous and vomits every morning. Also that she had a temp of 101.6F at home 2 days ago. She denies chest pain, dyspnea or abdo rosy pain. She was given 1L of fluid in the ED. Orthostatics were checked and noted to be positive. She was given another liter of fluids but she still had significant orthostatics. As a result she was presented for admission. She was noted to be anemic in the ED but stool guaic was negative. Hemoglobin was 8.8 today and 11.7 6months ago. As a result of her persistent symptoms she was admitted for further treatment. History - Past Medical History Cardiovascular: reports: Hypertension Respiratory: reports: None Neuro: reports: None Endocrine/Autoimmune: reports: None, HyPOthyroidism GI: reports: None GEOLOGY INSTRUCTOR: reports: None : reports: None HEENT: reports: None Psych: reports: Anxiety Musculoskeletal: reports: None Derm: reports: None MRSA Hx?: No Other Past Medical History: liver cancer Dx 08/2018 - Past Surgical History General: reports: Cholecystectomy, Appendectomy /GEOLOGY INSTRUCTOR: reports: Hysterectomy Derm: reports: Skin cancer surgery - Family & Social History Family History Comment/Other: father: CABG, laryngeal cancer. mother: CVA, Alzheimers. daughter: throat cancer. son1: hypertension. son2: hypertension Living arrangement: At home Living Situation: With family Social History Notes: She denied alcoholor tobacco use. She started attempting CBD oils to help with appetite. - POLST Patient has POLST: No POLST Status: Full Code Meds/Allgy - Home Medications Home Medications: Ambulatory Orders Medication Instructions Recorded Confirmed Propranolol HCl 40 mg PO DAILY 08/09/13 03/06/19 HYDROcod/ACETAM 5/325 [[place] 5/325] 1 tab PO Q6H PRN #15 tablet 11/01/16 03/06/19 Levothyroxine Sodium [Synthroid] 25 mcg PO DAILY 11/01/16 03/06/19 busPIRone [Buspar] 5 mg PO DAILY 11/01/16 03/06/19 Ondansetron Odt [Zofran] 4 mg TL Q6H PRN #10 tablet 09/06/18 03/06/19 Cyclobenzaprine HCl 5 mg PO TID PRN 03/06/19 03/06/19 Milk Thistle Seed Extract [Milk 175 mg ORAL DAILY 03/06/19 03/06/19 Thistle] - Allergies Allergies/Adverse Reactions: Allergies Allergy/AdvReac Type Severity Reaction Status Date / Time Sulfa (Sulfonamide Allergy Unknown Verified 03/06/19 16:25 Antibiotics) codeine AdvReac Nausea Verified 03/06/19 16:25 Review of Systems - Constitutional Constitutional: reports: Fatigue, Weakness, Poor appetite, Other (Pale). den ies: Fever, Chills - Eyes Eyes: denies: Pain, Vision loss, Dipolpia - Ears, Nose & Throat Ears, Nose & Throat: denies: Sore throat - Cardiovascular Cariovascular: reports: Lightheadedness, Syncope. denies: Palpitations, Chest pain, Edema, Exertional dyspnea - Respiratory Respiratory: denies: Cough, Sputum production, Wheezing, Hemoptysis, Orthopnea, SOB at rest, SOB with exertion - Gastrointestinal Gastrointestinal: reports: Nausea, Vomiting. denies: Abdominal pain, Constipation, Diarrhea, Black stools, Coffee grounds emesis, Reflux/heartburn - Genitourinary Genitourinary: denies: Dysuria, Frequency, Urgency, Hematuria - Musculoskeletal Musculoskeletal: denies: Muscle pain, Back pain, Muscle aches, Stiffness - Integumentary Integumentary: denies: Rash, Pruritis, Lesions - Neurological Neurological: reports: General weakness, Headache, Dizziness. denies: Focal weakness, Numbness - Psychiatric Psychiatric: reports: Anxiety. denies: Depression - Endocrine Endocrine: denies: Polyuria, Polydypsia - Hematologic/Lymphatic Hematologic/Lymphatic: reports: Anemia. denies: Bruising, Petechiae Prior Level of Functionality: She has been generally weak lately. She normally walks unaided Exam - Vital Signs Vital Signs: Vital Signs x48h Temp Pulse Pulse Pulse Pulse Resp BP 03/06/19 19:56 80 82 69 03/06/19 18:06 73 18 106/57 L 03/06/19 18:04 78 80 76 03/06/19 16:30 74 18 110/57 L 03/06/19 16:18 37.3 C 79 15 109/60 BP BP BP Pulse Ox 03/06/19 19:56 107/66 98/63 97/58 L 03/06/19 18:06 94 03/06/19 18:04 114/61 97/52 L 114/62 03/06/19 16:30 98 03/06/19 16:18 97 - Physical Exam General Appearance: positive: Alert, Other (weak, pale,) Eyes Bilateral: positive: PERRL, EOMI ENT: positive: Dry mucous membranes Neck: positive: Nml inspection, No JVD, Trachea midline Respiratory: positive: Chest non-tender, No respiratory distress, Breath sounds nml. negative: Wheezes, Rales, Rhonchi Cardiovascular: positive: Regular rate & rhythm, No murmur Abdomen: positive: Non-tender, No organomegaly, Nml bowel sounds, No distention. negative: Tenderness Rectal: positive: Stool - heme NEG Back: positive: Nml inspection Skin: positive: No rash, Warm, Dry, Pallor Extremities: positive: Non-tender, Full ROM, Nml appearance, No pedal edema Neurologic/Psychiatric: positive: Oriented x3, Mood/affect nml Conclusion/Plan - Problem List (1) Syncope Conclusion/Plan: Etiology undetermined but suspect dehydration Orthostatics were positive. Patient given 2L of normal saline. Will continue IV hydration at 150ml/hr Repeat orthostatic in the am Hold antihypertensive medications 2D echo. Qualifiers: Syncope type: unspecified Qualified Code(s): R55 - Syncope and collapse (2) Hepatocellular carcinoma Conclusion/Plan: managed at [facility] CT abd/pelvis showed overall increased size and number of numerous hepatic lesions Recent radio ablation on 02/28/19. Follow up in 3 months as planned Services Tech is Dr Augustin (3) Anemia Conclusion/Plan: Likely related to HCC. Guaic was negative. Will monitor H&H Check Fe, TIBC, Vit B12 and folate (4) Anxiety Conclusion/Plan: On buspar (5) Hypothyroidism Conclusion/Plan: On synthroid - Lab Results Fish Bones: 03/06/19 16:40 03/06/19 16:40 Core Measures - Anticipated LOS I expect patient to be DC'd or transferred within 96 hours.: Yes - DVT/VTE - Prophylaxis VTE/DVT Device ordered at admit?: Yes
[2019-03-06] MEDS: SODIUM CHLORIDE 0.9% 1,000 ML IV SCH (21:26)
[2019-03-06] MEDS: SODIUM CHLORIDE FLUSH 0.9% 10 ML SYRINGE IVP PRN (21:27)
[2019-03-06 23:01] LABS: MUDS CUTOFF CONCENTRATIONS CUTOFF CONC BELOW:
[2019-03-06 23:07] LABS: BILIRUBIN,URINE NEGATIVE (NEGATIVE); GLUCOSE, URINE (UA) NEGATIVE (NEGATIVE); KETONES,URINE (UA) NEGATIVE (NEGATIVE); LEUKOCYTE ESTERASE, URINE NEGATIVE (NEGATIVE); NITRITE,URINE NEGATIVE (NEGATIVE); OCCULT BLOOD,URINE NEGATIVE (NEGATIVE); PH,URINE 5.5 PH (5.0-7.5); PROTEIN,URINE TRACE mg/dL (NEGATIVE); UROBILINOGEN,URINE 0.2 (NORMAL) E.U./dL (NORMAL)
[2019-03-06 23:09] LABS: CLARITY,URINE CLEAR (CLEAR)
[2019-03-06 23:16] LABS: COCAINE SCREEN URINE NEGATIVE (NEGATIVE)
[2019-03-06 23:17] LABS: AMPHETAMINE SCREEN,URINE NEGATIVE (NEGATIVE); BENZODIAZEPINES SCREEN, URINE NEGATIVE (NEGATIVE); METHADONE SCREEN, URINE NEGATIVE (NEGATIVE); METHAMPHETAMINES SCREEN, URINE NEGATIVE (NEGATIVE); OPIATE SCREEN, URINE POSITIVE (NEGATIVE); OXYCODONE SCREEN, URINE NEGATIVE (NEGATIVE); PROPOXYPHENE SCREEN, URINE NEGATIVE (NEGATIVE); TRICYCLIC ANTIDEPRESSANT,URINE NEGATIVE (NEGATIVE)
[2019-03-07] MEDS: SODIUM CHLORIDE 0.9% 1,000 ML IV SCH ×3 (04:44→16:36)
[2019-03-07 06:11] LABS: BASOPHILS % (AUTO) 0.3 %; EOSINOPHILS % (AUTO) 0.4 %; HGB - HEMOGLOBIN 9.1 g/dL (12.0-16.0); LYMPHOCYTES # (AUTO) 0.3 10^3/uL (1.5-3.5); LYMPHOCYTES % (AUTO) 4.3 %; MEAN CORPUSCULAR HEMOGLOBIN 26.1 pg (27.0-31.0); MEAN CORPUSCULAR HGB CONC 30.1 g/dL (32.0-36.0); MEAN CORPUSCULAR VOLUME 86.8 fL (81.0-99.0); MEAN PLATELET VOLUME 10.5 fL (7.9-10.8); MONOCYTES # (AUTO) 0.6 10^3/uL (0.0-1.0); MONOCYTES % (AUTO) 8.5 %; NEUTROPHILS % (AUTO) 85.8 %; PLT - PLATELET COUNT 288 10^3/uL (130-450); RED BLOOD COUNT 3.48 10^6/uL (4.20-5.40)
[2019-03-07 06:16] LABS: CALCIUM 8.3 mg/dL (8.5-10.3); CREATININE 1.2 mg/dL (0.4-1.0)
[2019-03-07 06:32] LABS: % IRON SATURATION 10 % (20-50); IRON 21 ug/dL (28-170); TOTAL IRON BINDING CAPACITY 211 ug/dL (250-450); TRANSFERRIN 151 mg/dL (192-382)
[2019-03-07 06:48] LABS: FOLATE 6.58 ng/mL (5.90 - >24.8)
[2019-03-07] MEDS: SODIUM CHLORIDE FLUSH 0.9% 10 ML SYRINGE IVP SCH ×3 (07:00→16:36)
[2019-03-07] MEDS: FERROUS SULFATE 325 MG TABLET PO SCH ×2 (10:03→16:36)
--- NOTE | 2019-03-07 11:34 | PHARMACY PROGRESS NOTE ---
- Best Possible Medication History Admit Date and Time: 03/06/192016 Processed by: Pharmacy (pharmacy and nursing) Medication History completed: Yes Patient Interview: Completed Secondary Source(s): Other family member, Insurance records As the person ultimately responsible for medication therapy, providers are able to order a medication from an existing home medication list in [facility] via the "Reconcile Routine" prior to Confirmation of that medication by computer support specialist. Such practice is discouraged except when the physician, in their clinical judgment, deems that a medical need exists for a medication without regard to previous use.
[2019-03-07] MEDS ORDERED: ACETAMINOPHEN 500 MG TABLET PO STA (20:09)
[2019-03-07 20:14] LABS: BASOPHILS % (AUTO) 0.2 %; EOSINOPHILS % (AUTO) 0.6 %; HGB - HEMOGLOBIN 8.7 g/dL (12.0-16.0); LYMPHOCYTES # (AUTO) 0.4 10^3/uL (1.5-3.5); LYMPHOCYTES % (AUTO) 5.9 %; MEAN CORPUSCULAR HEMOGLOBIN 26.6 pg (27.0-31.0); MEAN CORPUSCULAR HGB CONC 30.5 g/dL (32.0-36.0); MEAN CORPUSCULAR VOLUME 87.2 fL (81.0-99.0); MEAN PLATELET VOLUME 10.3 fL (7.9-10.8); MONOCYTES # (AUTO) 0.5 10^3/uL (0.0-1.0); MONOCYTES % (AUTO) 8.4 %; NEUTROPHILS # (AUTO) 5.4 10^3/uL (1.5-6.6); NEUTROPHILS % (AUTO) 83.8 %; PLT - PLATELET COUNT 300 10^3/uL (130-450); RED BLOOD COUNT 3.27 10^6/uL (4.20-5.40); WHITE BLOOD COUNT 6.4 x10^3/uL (4.8-10.8)
[2019-03-07] MEDS: HYDROcod/ACETAM 7.5 MG/325 MG TABLET PO PRN (20:21)
--- NOTE | 2019-03-07 20:25 | PROVIDER PROGRESS NOTE ---
Assessment/Plan - Problem List (1) Fever Assessment/Plan: Temp was 38.6C Etiology undetermined Suspect GI source, in light of recent ablation Will place patient on empiric cipro and flagyl Patient will be made inpatient due to this new development Blood culture and CXR ordered. UA greco yesterday was normal (2) Syncope Qualifiers: Syncope type: unspecified Qualified Code(s): R55 - Syncope and collapse Assessment/Plan: Patient's blood pressures are back to normal with adequate hydration. Will discontinue IV fluids. She is eating well. 2D echo showed normal function with EF of 65-70%. (3) Hepatocellular carcinoma Assessment/Plan: Patient will follow up with [facility] [employer] as planned (4) Anemia Qualifiers: Anemia type: iron deficiency Assessment/Plan: Patient started on iron supplements Advised on potential of causing stomach upset. If that happens, she will likely need set up for iron infusions (6) Hypothyroidism Assessment/Plan: On synthroid 75mcg qam - Current Meds Current Meds: Current Medications Generic Name Dose Route Start Last Admin Trade Name Freq PRN Reason Stop Dose Admin Ferrous Sulfate 325 mg 03/07/19 08:00 03/07/19 16:36 Feosol PO 325 mg BIDWM ARIADNA Administration Sodium Chloride 10 ml 03/06/19 20:17 03/06/19 21:27 Normal Saline Flush 0.9% IVP 10 ml PRN PRN Administration NEEDED PER PROVIDER ORDERS Sodium Chloride 10 ml 03/07/19 01:00 03/07/19 16:36 Normal Saline Flush 0.9% IVP Not Given 0100,0900,1700 ARIADNA - Lab Result Fish Bone Diagrams: 03/07/19 20:00 03/07/19 06:00 - Additional Planning Condition/Complexity: Improved My Orders: My Active Orders 03/06/19 20:17 Activity Orders [RC] Q2HR IO [RC] IOSHIFT Initiate Bowel Care Protocol [RC] .protocol Initiate Line Care Protocol [RC] QSHIFT Initiate Personal Care Protoco [RC] .protocol Oxygen Therapy [RC] Routine Telemetry- [RC] Q4HR Vital Signs [RC] Q4HR Sodium Chloride Flush 0.9% [Normal Saline Flush 0.9%] 10 ml IVP PRN PRN Code Status [OTHERS] Routine Condition of Patient [OTHERS] Routine DVT Prophylaxis [OTHERS] Routine 03/06/19 20:19 SCDs [RC] QSHIFT 03/06/19 22:40 Straight Catheter Insertion [RC] ONCE 03/07/19 CBC - COMP BLD CT W/AUTO DIFF [HEME] Stat CULTURE, BLOOD #1 [RM] Stat CULTURE, BLOOD #2 [RM] Stat 03/07/19 01:00 Sodium Chloride Flush 0.9% [Normal Saline Flush 0.9%] 10 ml IVP 0100,0900,1700 03/07/19 08:00 Echo Transthoracic Complete [ECHO] Routine Ferrous Sulfate [Feosol] 325 mg PO BIDWM 03/07/19 09:00 Orthostatic [Vital Signs - Orthostatic] [RC] QSHIFT 03/07/19 19:46 Chest 1 View X-Ray [XR] Stat 03/07/19 20:07 HYDROcodone/ACET 7.5/325 [[place] 7.5/325] 1 tab PO Q6HR PRN 03/08/19 05:00 BMP - BASIC METABOLIC PANEL [CHEM] DAILYLAB CBC - COMP BLD CT W/AUTO DIFF [HEME] DAILYLAB 03/08/19 07:00 Levothyroxine [Synthroid] 75 mcg PO QDAC 03/09/19 05:00 BMP - BASIC METABOLIC PANEL [CHEM] DAILYLAB CBC - COMP BLD CT W/AUTO DIFF [HEME] DAILYLAB 03/10/19 05:00 BMP - BASIC METABOLIC PANEL [CHEM] DAILYLAB CBC - COMP BLD CT W/AUTO DIFF [HEME] DAILYLAB 03/11/19 05:00 BMP - BASIC METABOLIC PANEL [CHEM] DAILYLAB CBC - COMP BLD CT W/AUTO DIFF [HEME] DAILYLAB Plan Discussed with:: Family Time Spent: 15-30 minutes Subjective - Subjective Patient Reports: Other (Patient reports feeling better today. She was having dinner at the time of this visit. She denied chest pain but reports some mild dyspnea. She also has puffiness in the left arm where IV fluids have been. She spiked a temperature of 38.6C today. She is also experiencing some abdominal pain. Family at bedside explained that she always has abdomnal pain relating to her liver lesions.) Objective Vital Signs: Vital Signs - 24 hr 03/06/19 03/06/19 03/06/19 20:28 21:15 21:33 Temperature 36.8 C 36.9 C Heart Rate 69 69 Heart Rate [ 69 Brachial] Heart Rate [ Sitting (After 1 Minute)] Heart Rate [ Standing (After 1 Minute)] Heart Rate [ Supine] Respiratory 14 18 18 Rate Blood Pressure 103/61 89/58 L Blood Pressure [Left Brachial artery] Blood Pressure 98/56 L [Right Brachial artery] Blood Pressure [Sitting (After 1 Minute)] Blood Pressure [Standing ( After 1 Minute) ] Blood Pressure [Supine] O2 Saturation 95 94 03/06/19 03/06/19 03/07/19 22:00 23:55 03:40 Temperature 36.5 C 36.5 C 36.8 C Heart Rate 64 Heart Rate [ 64 73 Brachial] Heart Rate [ Sitting (After 1 Minute)] Heart Rate [ Standing (After 1 Minute)] Heart Rate [ Supine] Respiratory 16 16 16 Rate Blood Pressure Blood Pressure [Left Brachial artery] Blood Pressure 91/47 L 94/45 L [Right Brachial artery] Blood Pressure [Sitting (After 1 Minute)] Blood Pressure [Standing ( After 1 Minute) ] Blood Pressure [Supine] O2 Saturation 95 95 97 03/07/19 03/07/19 03/07/19 09:00 10:58 13:00 Temperature 36.8 C 36.5 C Heart Rate Heart Rate [ 79 84 Brachial] Heart Rate [ 80 Sitting (After 1 Minute)] Heart Rate [ 87 Standing (After 1 Minute)] Heart Rate [ 75 Supine] Respiratory 20 21 Rate Blood Pressure Blood Pressure 135/58 H [Left Brachial artery] Blood Pressure 103/55 L [Right Brachial artery] Blood Pressure 122/53 L [Sitting (After 1 Minute)] Blood Pressure 115/59 L [Standing ( After 1 Minute) ] Blood Pressure 109/60 [Supine] O2 Saturation 98 97 03/07/19 03/07/19 03/07/19 15:41 16:30 18:26 Temperature 38.0 C H 38.1 C H Heart Rate Heart Rate [ 93 Brachial] Heart Rate [ 87 Sitting (After 1 Minute)] Heart Rate [ 91 Standing (After 1 Minute)] Heart Rate [ 82 Supine] Respiratory 20 Rate Blood Pressure Blood Pressure 122/60 [Left Brachial artery] Blood Pressure [Right Brachial artery] Blood Pressure 138/65 H [Sitting (After 1 Minute)] Blood Pressure 144/66 H [Standing ( After 1 Minute) ] Blood Pressure 128/59 L [Supine] O2 Saturation 98 12/23/19 12/23/19 18:34 20:01 Temperature 38.6 C H 37.9 C H Heart Rate Heart Rate [ 81 Brachial] Heart Rate [ Sitting (After 1 Minute)] Heart Rate [ Standing (After 1 Minute)] Heart Rate [ Supine] Respiratory 18 Rate Blood Pressure Blood Pressure [Left Brachial artery] Blood Pressure 149/62 H [Right Brachial artery] Blood Pressure [Sitting (After 1 Minute)] Blood Pressure [Standing ( After 1 Minute) ] Blood Pressure [Supine] O2 Saturation 97 Oxygen O2 Source Room air I&O (Last 24 Hrs): Intake and Output Totals x24h 03/05/19 03/06/19 03/07/19 23:59 23:59 23:59 Intake Total 2240 4020 Output Total 500 850 Balance 1740 3170 General: Alert, Oriented x3, Moderate distress HEENT: PERRLA, EOMI Neck: No JVD Neuro: Alert, Oriented Times 3 Cardiovascular: Regular rate Respiratory: No respiratory distress, Breath sounds nml, Other (No wheezing, rhonchi or crackles) Abdomen: Normal bowel sounds, Soft Extremities: Other (No lower extremity edema) Skin: No rashes - Results Results: Laboratory Results WBC 7.0 x10^3/uL (4.8-10.8) 03/07/19 06:00 RBC 3.48 10^6/uL (4.20-5.40) L 03/07/19 06:00 Hgb 9.1 g/dL (12.0-16.0) L 03/07/19 06:00 Hct 30.2 % (37.0-47.0) L 03/07/19 06:00 MCV 86.8 fL (81.0-99.0) 03/07/19 06:00 MCH 26.1 pg (27.0-31.0) L 03/07/19 06:00 MCHC 30.1 g/dL (32.0-36.0) L 03/07/19 06:00 RDW 16.0 % (12.0-15.0) H 03/07/19 06:00 Plt Count 288 10^3/uL (130-450) 03/07/19 06:00 MPV 10.5 fL (7.9-10.8) 03/07/19 06:00 Neut # (Auto) 6.0 10^3/uL (1.5-6.6) 03/07/19 06:00 Lymph # (Auto) 0.3 10^3/uL (1.5-3.5) L 03/07/19 06:00 [place] # (Auto) 0.6 10^3/uL (0.0-1.0) 03/07/19 06:00 Eos # (Auto) 0.0 10^3/uL (0.0-0.7) 03/07/19 06:00 Baso # (Auto) 0.0 10^3/uL (0.0-0.1) 03/07/19 06:00 Absolute Nucleated RBC 0.00 x10^3/uL 03/07/19 06:00 Nucleated RBC % 0.0 /100WBC 03/07/19 06:00 Sodium 137 mmol/L (135-145) 03/07/19 06:00 Potassium 3.5 mmol/L (3.5-5.0) 03/07/19 06:00 Chloride 107 mmol/L (101-111) 03/07/19 06:00 Carbon Dioxide 23 mmol/L (21-32) 03/07/19 06:00 Anion Gap 7.0 (6-13) 03/07/19 06:00 BUN 15 mg/dL (6-20) 03/07/19 06:00 Creatinine 1.2 mg/dL (0.4-1.0) H 03/07/19 06:00 Estimated GFR (MDRD) 45 (>89) L 03/07/19 06:00 Glucose 119 mg/dL (70-100) H 03/07/19 06:00 Lactic Acid 1.6 mmol/L (0.5-2.2) 03/06/19 16:40 Calcium 8.3 mg/dL (8.5-10.3) L 03/07/19 06:00 Magnesium 1.7 mg/dL (1.7-2.8) 03/06/19 16:40 Iron 21 ug/dL (28-170) L 03/07/19 06:00 TIBC 211 ug/dL (250-450) L 03/07/19 06:00 % Saturation 10 % (20-50) L 03/07/19 06:00 Transferrin 151 mg/dL (192-382) L 03/07/19 06:00 Total Bilirubin 1.2 mg/dL (0.2-1.0) H 03/06/19 16:40 AST 133 IU/L (10-42) H 03/06/19 16:40 ALT 85 IU/L (10-60) H 03/06/19 16:40 Alkaline Phosphatase 123 IU/L (42-121) H 03/06/19 16:40 Total Protein 6.6 g/dL (6.7-8.2) L 03/06/19 16:40 Albumin 2.7 g/dL (3.2-5.5) L 03/06/19 16:40 Globulin 3.9 g/dL (2.1-4.2) 03/06/19 16:40 Albumin/Globulin Ratio 0.7 (1.0-2.2) L 03/06/19 16:40 Lipase 20 U/L (22-51) L 03/06/19 16:40 Vitamin B12 744 pg/mL (180-914) 03/07/19 06:00 Folate 6.58 ng/mL (5.90 - >24.8) 03/07/19 06:00 Urine Color YELLOW 03/06/19 22:55 Urine Clarity CLEAR (CLEAR) 03/06/19 22:55 Urine pH 5.5 PH (5.0-7.5) 03/06/19 22:55 Ur Specific [place] <=1.005 (1.002-1.030) 03/06/19 22:55 Urine Protein TRACE mg/dL (NEGATIVE) 03/06/19 22:55 Urine Glucose (UA) NEGATIVE mg/dL (NEGATIVE) 03/06/19 22:55 Urine Ketones NEGATIVE mg/dL (NEGATIVE) 03/06/19 22:55 Urine Occult Blood NEGATIVE (NEGATIVE) 03/06/19 22:55 Urine Nitrite NEGATIVE (NEGATIVE) 03/06/19 22:55 Urine Bilirubin NEGATIVE (NEGATIVE) 03/06/19 22:55 Urine Urobilinogen 0.2 (NORMAL) E.U./dL (NORMAL) 03/06/19 22:55 Ur Leukocyte Esterase NEGATIVE (NEGATIVE) 03/06/19 22:55 Ur Microscopic Review NOT INDICATED 03/06/19 22:55 Urine Culture Comments NOT INDICATED 03/06/19 22:55 Urine Opiates Screen POSITIVE (NEGATIVE) H 03/06/19 22:55 Ur Oxycodone Screen NEGATIVE (NEGATIVE) 03/06/19 22:55 Urine Methadone Screen NEGATIVE (NEGATIVE) 12 22:55 Ur Propoxyphene Screen NEGATIVE (NEGATIVE) 03/06/19 22:55 Ur Barbiturates Screen NEGATIVE (NEGATIVE) 03/06/19 22:55 Ur Tricyclics Screen NEGATIVE (NEGATIVE) 03/06/19 22:55 Ur Phencyclidine Scrn NEGATIVE (NEGATIVE) 03/06/19 22:55 Ur Amphetamine Screen NEGATIVE (NEGATIVE) 03/06/19 22:55 U Methamphetamines Scrn NEGATIVE (NEGATIVE) 03/06/19 22:55 U Benzodiazepines Scrn NEGATIVE (NEGATIVE) 03/06/19 22:55 Urine Cocaine Screen NEGATIVE (NEGATIVE) 03/06/19 22:55 U Cannabinoids Screen POSITIVE (NEGATIVE) H 03/06/19 22:55 Ethyl Alcohol < 5.0 mg/dL 03/06/19 16:40 ABX Reporting Has patient been on IV antibiotics over the past 48 hours?: No
--- NOTE | 2019-03-07 20:53 | XRAY Report ---
Reason: fever. eval for pneumonia Procedure Date: 03/07/2019 Accession Number: [id number] / [id number] Procedure: XR - Chest 1 View X-Ray CPT Code: 26641 Final Report FULL RESULT: EXAM: CHEST RADIOGRAPHY EXAM DATE: 03/07/2019 08:01 PM. CLINICAL HISTORY: Fever. Eval for pneumonia. COMPARISON: ABDOMEN/PELVIS W/ 03/06/2019 5:36 PM. TECHNIQUE: 1 view. FINDINGS: Lungs/Pleura: No focal consolidation. Mild streaky bibasilar atelectasis or scarring. No pleural effusion. No pneumothorax. Mediastinum: Within exam limitations, the cardiomediastinal contour is normal. Other: None. IMPRESSION: No acute findings. RADIA
[2019-03-07] MEDS: metroNIDAZOLE 500 MG/100 ML 500 MG/100 ML BAG IV SCH (22:08)
[2019-03-07] MEDS: CIPROFLOXACIN 400 MG/200 ML 200 ML IV SCH (22:11)
[2019-03-08] MEDS: SODIUM CHLORIDE FLUSH 0.9% 10 ML SYRINGE IVP SCH ×4 (01:43→23:49)
[2019-03-08 05:39] LABS: BASOPHILS % (AUTO) 0.3 %; EOSINOPHILS # (AUTO) 0.1 10^3/uL (0.0-0.7); EOSINOPHILS % (AUTO) 0.8 %; HGB - HEMOGLOBIN 9.2 g/dL (12.0-16.0); LYMPHOCYTES # (AUTO) 0.4 10^3/uL (1.5-3.5); LYMPHOCYTES % (AUTO) 5.5 %; MEAN CORPUSCULAR HEMOGLOBIN 26.3 pg (27.0-31.0); MEAN CORPUSCULAR HGB CONC 29.1 g/dL (32.0-36.0); MEAN CORPUSCULAR VOLUME 90.3 fL (81.0-99.0); MEAN PLATELET VOLUME 10.3 fL (7.9-10.8); MONOCYTES # (AUTO) 0.6 10^3/uL (0.0-1.0); MONOCYTES % (AUTO) 9.1 %; NEUTROPHILS # (AUTO) 5.3 10^3/uL (1.5-6.6); NEUTROPHILS % (AUTO) 83.2 %; PLT - PLATELET COUNT 282 10^3/uL (130-450); RED CELL DISTRIBUTION WIDTH 15.9 % (12.0-15.0); WHITE BLOOD COUNT 6.3 x10^3/uL (4.8-10.8)
[2019-03-08 05:41] LABS: CALCIUM 8.3 mg/dL (8.5-10.3); CREATININE 0.6 mg/dL (0.4-1.0)
[2019-03-08] MEDS: ONDANSETRON 4 MG/2 ML VIAL IVP PRN ×2 (05:48→16:18)
[2019-03-08] MEDS: SODIUM CHLORIDE FLUSH 0.9% 10 ML SYRINGE IVP PRN ×2 (05:49→16:18)
[2019-03-08] MEDS: metroNIDAZOLE 500 MG/100 ML 500 MG/100 ML BAG IV SCH ×3 (05:49→21:32)
[2019-03-08] MEDS: LEVOTHYROXINE 75 MCG TABLET PO SCH (06:11)
[2019-03-08 08:15] LABS: ALBUMIN 2.1 g/dL (3.2-5.5); ALBUMIN/GLOBULIN RATIO 0.6 (1.0-2.2); BILIRUBIN,TOTAL 0.6 mg/dL (0.2-1.0); CALCIUM 8.3 mg/dL (8.5-10.3); CREATININE 0.6 mg/dL (0.4-1.0); TOTAL PROTEIN 5.8 g/dL (6.7-8.2)
[2019-03-08] MEDS: FERROUS SULFATE 325 MG TABLET PO SCH ×2 (08:51→17:57)
[2019-03-08] MEDS ORDERED: CYCLOBENZAPRINE 10 MG TABLET PO PRN (09:03)
[2019-03-08] MEDS ORDERED: HYDROcod/ACETAM 5/325 MG TABLET PO PRN (09:03)
[2019-03-08] MEDS ORDERED: PROPRANOLOL 40 MG TABLET PO SCH (10:00)
--- NOTE | 2019-03-08 10:07 | PROVIDER PROGRESS NOTE ---
Assessment/Plan - Problem List (1) Fever Assessment/Plan: 03/08 pt has no fever on last night. pt's UA and CXR did not reveal pathogenesis. agree it is likely from recently radio-ablation and abdominal oscar urse. continue Cipro and Flagyl followup blood culture (2) Syncope 03/08, resolved. ECHO reveals preserved EF, mild abnormal right heart pressure. pt's syncope is likely from pt's severe dehydration and poor appetite. 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 pt has no GI bleed. it is likely combination of liver carcinoma complex medical conditions and iron deficiency. continue iron pill (5) Hypothyroidism Assessment/Plan: stable, will check TSH, On synthroid 75mcg qam (6)severe protein calorie malnutrition pt has hx of metastatic liver carcinoma, recently she had radio-ablation treatment of liver tumor. pt's nutrition intake < 50% of recommended intake for 2 weeks or more, pt's weight loss> 2% in week, >5% in one month or >7.5% in 3 months. consult with division director, followup recommendation continue support pt, might consider Marinol if pt's appetite is still poor. - Current Meds Current Meds: Current Medications Generic Name Dose Route Start Last Admin Trade Name Freq PRN Reason Stop Dose Admin Hydrocodone Bitart/Acetaminophen 1 tab 03/07/19 20:07 03/07/19 20:21 [place] 7.5/325 PO 1 tab Q6HR PRN Administration PAIN Ferrous Sulfate 325 mg 03/07/19 08:00 03/08/19 08:51 Feosol PO 325 mg BIDWM ARIADNA Administration Ciprofloxacin 200 mls @ 200 mls/hr 03/07/19 22:00 03/07/19 23:35 Cipro 400 Mg/200 Ml IV Infused Q12H ARIADNA Infusion Metronidazole 500 mg in 100 mls @ 100 mls/hr 03/07/19 22:00 03/08/19 06:51 Flagyl 500 Mg/100 Ml IV Infused Q8H ARIADNA Infusion Levothyroxine Sodium 75 mcg 03/08/19 07:00 03/08/19 06:11 Synthroid PO 75 mcg QDAC ARIADNA Administration Ondansetron HCl 4 mg 03/08/19 05:38 03/08/19 05:48 Zofran Inj IVP 4 mg Q6HR PRN Administration Nausea / Vomiting Sodium Chloride 10 ml 03/06/19 20:17 03/08/19 05:49 Normal Saline Flush 0.9% IVP 10 ml PRN PRN Administration NEEDED PER PROVIDER ORDERS Sodium Chloride 10 ml 03/07/19 01:00 03/08/19 08:53 Normal Saline Flush 0.9% IVP 10 ml 0100,0900,1700 ARIADNA Administration - Lab Result Fish Bone Diagrams: 03/08/19 05:21 03/08/19 07:51 - Additional Planning My Orders: My Active Orders 03/08/19 09:03 Cyclobenzaprine [Flexeril] 5 mg PO TID PRN 03/08/19 10:00 Propranolol [Inderal] 10 mg PO DAILY busPIRone [Buspar] 10 mg PO DAILY 03/08/19 10:03 Potassium Chloride [K-Dur] 20 meq PO ONCE ONE Subjective - Subjective Patient Reports: Feeling Better Objective Vital Signs: Vital Signs - 24 hr 03/07/19 03/07/19 03/07/19 10:58 13:00 15:41 Temperature 36.5 C 38.0 C H Heart Rate [ 84 93 Brachial] Heart Rate [ 80 Sitting (After 1 Minute)] Heart Rate [ 87 Standing (After 1 Minute)] Heart Rate [ 75 Supine] Respiratory 21 20 Rate Blood Pressure 135/58 H 122/60 [Left Brachial artery] Blood Pressure [Right Ankle] Blood Pressure [Right Brachial artery] Blood Pressure 122/53 L [Sitting (After 1 Minute)] Blood Pressure 115/59 L [Standing ( After 1 Minute) ] Blood Pressure 109/60 [Supine] O2 Saturation 97 98 03/07/19 03/07/19 03/07/19 16:30 18:26 18:34 Temperature 38.1 C H 38.6 C H Heart Rate [ Brachial] Heart Rate [ 87 Sitting (After 1 Minute)] Heart Rate [ 91 Standing (After 1 Minute)] Heart Rate [ 82 Supine] Respiratory Rate Blood Pressure [Left Brachial artery] Blood Pressure [Right Ankle] Blood Pressure [Right Brachial artery] Blood Pressure 138/65 H [Sitting (After 1 Minute)] Blood Pressure 144/66 H [Standing ( After 1 Minute) ] Blood Pressure 128/59 L [Supine] O2 Saturation 03/07/19 03/08/19 03/08/19 20:01 00:59 05:00 Temperature 37.9 C H 36.4 C L 37.1 C Heart Rate [ 81 65 66 Brachial] Heart Rate [ 80 Sitting (After 1 Minute)] Heart Rate [ 86 Standing (After 1 Minute)] Heart Rate [ 66 Supine] Respiratory 18 16 16 Rate Blood Pressure [Left Brachial artery] Blood Pressure [Right Ankle] Blood Pressure 149/62 H 115/62 140/64 H [Right Brachial artery] Blood Pressure 128/82 H [Sitting (After 1 Minute)] Blood Pressure 148/71 H [Standing ( After 1 Minute) ] Blood Pressure 140/64 H [Supine] O2 Saturation 97 98 98 03/08/19 08:07 Temperature 36.9 C Heart Rate [ 66 Brachial] Heart Rate [ Sitting (After 1 Minute)] Heart Rate [ Standing (After 1 Minute)] Heart Rate [ Supine] Respiratory 18 Rate Blood Pressure [Left Brachial artery] Blood Pressure 145/71 H [Right Ankle] Blood Pressure [Right Brachial artery] Blood Pressure [Sitting (After 1 Minute)] Blood Pressure [Standing ( After 1 Minute) ] Blood Pressure [Supine] O2 Saturation 97 Oxygen O2 Source Room air I&O (Last 24 Hrs): Intake and Output Totals x24h 03/06/19 03/07/19 03/08/19 23:59 23:59 23:59 Intake Total 2240 5670 740 Output Total 500 1250 Balance 1740 4420 740 General: Alert, Oriented x3, No acute distress HEENT: Atraumatic Neck: Supple Lymphatic: no adenopathy Neuro: Alert, Non Focal, Oriented Times 3 Cardiovascular: Regular rate, Normal S1, Normal S2 Respiratory: Chest non-tender, No respiratory distress, Breath sounds nml Abdomen: Normal bowel sounds, Soft Extremities: No edema, Normal pulses - Results Results: Laboratory Results WBC 6.3 x10^3/uL (4.8-10.8) 03/08/19 05:21 RBC 3.50 10^6/uL (4.20-5.40) L 03/08/19 05:21 Hgb 9.2 g/dL (12.0-16.0) L 03/08/19 05:21 Hct 31.6 % (37.0-47.0) L 03/08/19 05:21 MCV 90.3 fL (81.0-99.0) 03/08/19 05:21 MCH 26.3 pg (27.0-31.0) L 03/08/19 05:21 MCHC 29.1 g/dL (32.0-36.0) L 03/08/19 05:21 RDW 15.9 % (12.0-15.0) H 03/08/19 05:21 Plt Count 282 10^3/uL (130-450) 03/08/19 05:21 MPV 10.3 fL (7.9-10.8) 03/08/19 05:21 Neut # (Auto) 5.3 10^3/uL (1.5-6.6) 03/08/19 05:21 Lymph # (Auto) 0.4 10^3/uL (1.5-3.5) L 03/08/19 05:21 [place] # (Auto) 0.6 10^3/uL (0.0-1.0) 03/08/19 05:21 Eos # (Auto) 0.1 10^3/uL (0.0-0.7) 03/08/19 05:21 Baso # (Auto) 0.0 10^3/uL (0.0-0.1) 03/08/19 05:21 Absolute Nucleated RBC 0.00 x10^3/uL 03/08/19 05:21 Nucleated RBC % 0.0 /100WBC 03/08/19 05:21 Sodium 138 mmol/L (135-145) 03/08/19 07:51 Potassium 3.4 mmol/L (3.5-5.0) L 03/08/19 07:51 Chloride 110 mmol/L (101-111) 03/08/19 07:51 Carbon Dioxide 20 mmol/L (21-32) L 03/08/19 07:51 Anion Gap 8.0 (6-13) 03/08/19 07:51 BUN 8 mg/dL (6-20) 03/08/19 07:51 Creatinine 0.6 mg/dL (0.4-1.0) 03/08/19 07:51 Estimated GFR (MDRD) 99 (>89) 03/08/19 07:51 Glucose 94 mg/dL (70-100) 03/08/19 07:51 Lactic Acid 1.6 mmol/L (0.5-2.2) 03/06/19 16:40 Calcium 8.3 mg/dL (8.5-10.3) L 03/08/19 07:51 Magnesium 1.7 mg/dL (1.7-2.8) 03/06/19 16:40 Iron 21 ug/dL (28-170) L 03/07/19 06:00 TIBC 211 ug/dL (250-450) L 03/07/19 06:00 % Saturation 10 % (20-50) L 03/07/19 06:00 Transferrin 151 mg/dL (192-382) L 03/07/19 06:00 Total Bilirubin 0.6 mg/dL (0.2-1.0) 03/08/19 07:51 AST 79 IU/L (10-42) H 03/08/19 07:51 ALT 60 IU/L (10-60) 03/08/19 07:51 Alkaline Phosphatase 107 IU/L (42-121) 03/08/19 07:51 Total Protein 5.8 g/dL (6.7-8.2) L 03/08/19 07:51 Albumin 2.1 g/dL (3.2-5.5) L 03/08/19 07:51 Globulin 3.7 g/dL (2.1-4.2) 03/08/19 07:51 Albumin/Globulin Ratio 0.6 (1.0-2.2) L 03/08/19 07:51 Lipase 20 U/L (22-51) L 03/06/19 16:40 Vitamin B12 744 pg/mL (180-914) 03/07/19 06:00 Folate 6.58 ng/mL (5.90 - >24.8) 03/07/19 06:00 Urine Color YELLOW 03/06/19 22:55 Urine Clarity CLEAR (CLEAR) 03/06/19 22:55 Urine pH 5.5 PH (5.0-7.5) 03/06/19 22:55 Ur Specific [place] <=1.005 (1.002-1.030) 03/06/19 22:55 Urine Protein TRACE mg/dL (NEGATIVE) 03/06/19 22:55 Urine Glucose (UA) NEGATIVE mg/dL (NEGATIVE) 03/06/19 22:55 Urine Ketones NEGATIVE mg/dL (NEGATIVE) 03/06/19 22:55 Urine Occult Blood NEGATIVE (NEGATIVE) 03/06/19 22:55 Urine Nitrite NEGATIVE (NEGATIVE) 03/06/19 22:55 Urine Bilirubin NEGATIVE (NEGATIVE) 03/06/19 22:55 Urine Urobilinogen 0.2 (NORMAL) E.U./dL (NORMAL) 03/06/19 22:55 Ur Leukocyte Esterase NEGATIVE (NEGATIVE) 03/06/19 22:55 Ur Microscopic Review NOT INDICATED 03/06/19 22:55 Urine Culture Comments NOT INDICATED 03/06/19 22:55 Urine Opiates Screen POSITIVE (NEGATIVE) H 03/06/19 22:55 Ur Oxycodone Screen NEGATIVE (NEGATIVE) 03/06/19 22:55 Urine Methadone Screen NEGATIVE (NEGATIVE) 03/06/19 22:55 Ur Propoxyphene Screen NEGATIVE (NEGATIVE) 03/06/19 22:55 Ur Barbiturates Screen NEGATIVE (NEGATIVE) 03/06/19 22:55 Ur Tricyclics Screen NEGATIVE (NEGATIVE) 03/06/19 22:55 Ur Phencyclidine Scrn NEGATIVE (NEGATIVE) 03/06/19 22:55 Ur Amphetamine Screen NEGATIVE (NEGATIVE) 03/06/19 22:55 U Methamphetamines Scrn NEGATIVE (NEGATIVE) 03/06/19 22:55 U Benzodiazepines Scrn NEGATIVE (NEGATIVE) 03/06/19 22:55 Urine Cocaine Screen NEGATIVE (NEGATIVE) 03/06/19 22:55 U Cannabinoids Screen POSITIVE (NEGATIVE) H 03/06/19 22:55 Ethyl Alcohol < 5.0 mg/dL 03/06/19 16:40 Sepsis Event Note (H) - Evaluation Current Stage of Sepsis: Ruled out ABX Reporting Has patient been on IV antibiotics over the past 48 hours?: Yes Current Medications - Current Medications Current Medications: Active Medications Hydrocodone Bitart/Acetaminophen ([place] 7.5/325) 1 tab PO Q6HR PRN PRN Reason: PAIN Last Admin: 03/07/19 20:21 Dose: 1 tab Buspirone HCl (Buspar) 10 mg PO DAILY ARIADNA Cyclobenzaprine HCl (Flexeril) 5 mg PO TID PRN PRN Reason: Spasms Ferrous Sulfate (Feosol) 325 mg PO BIDWM [facility] Last Admin: 03/08/19 08:51 Dose: 325 mg Ciprofloxacin (Cipro 400 Mg/200 Ml) 200 mls @ 200 mls/hr IV Q12H [facility] Last Infusion: 03/07/19 23:35 Dose: Infused Metronidazole (Flagyl 500 Mg/100 Ml) 500 mg in 100 mls @ 100 mls/hr IV Q8H [facility] Last Infusion: 03/08/19 06:51 Dose: Infused Levothyroxine Sodium (Synthroid) 75 mcg PO QDAC [facility] Last Admin: 03/08/19 06:11 Dose: 75 mcg Ondansetron HCl (Zofran Inj) 4 mg IVP Q6HR PRN PRN Reason: Nausea / Vomiting Last Admin: 03/08/19 05:48 Dose: 4 mg Propranolol HCl (Inderal) 10 mg PO DAILY [facility] Sodium Chloride (Normal Saline Flush 0.9%) 10 ml IVP PRN PRN PRN Reason: NEEDED PER PROVIDER ORDERS Last Admin: 03/08/19 05:49 Dose: 10 ml Sodium Chloride (Normal Saline Flush 0.9%) 10 ml IVP 0100,0900,1700 [facility] Last Admin: 03/08/19 08:53 Dose: 10 ml Propranolol HCl 10 mg PO DAILY 08/09/13 Levothyroxine Sodium [Synthroid] 75 mcg PO DAILY 11/01/16 busPIRone [Buspar] 10 mg PO DAILY 11/01/16 Cyclobenzaprine HCl 5 mg PO TID PRN 03/06/19 Milk Thistle Seed Extract [Milk Thistle] 175 mg ORAL DAILY 03/06/19 Losartan Potassium 100 mg PO DAILY 03/07/19 amLODIPine [Norvasc] 5 mg PO DAILY 03/07/19
[2019-03-08] MEDS ORDERED: POTASSIUM CHLORIDE 20 MEQ TABLET PO ONE (10:20)
[2019-03-08] MEDS ORDERED: PROPRANOLOL 10 MG TABLET PO SCH (10:35)
[2019-03-08] MEDS: CIPROFLOXACIN 400 MG/200 ML 200 ML IV SCH ×2 (10:51→21:42)
[2019-03-08] MEDS: busPIRone 5 MG TABLET PO SCH (10:51)
[2019-03-08] MEDS: HYDROcod/ACETAM 7.5 MG/325 MG TABLET PO PRN (23:44)
[2019-03-09 04:57] LABS: BASOPHILS % (AUTO) 0.3 %; EOSINOPHILS # (AUTO) 0.1 10^3/uL (0.0-0.7); EOSINOPHILS % (AUTO) 0.9 %; HGB - HEMOGLOBIN 8.6 g/dL (12.0-16.0); LYMPHOCYTES # (AUTO) 0.6 10^3/uL (1.5-3.5); LYMPHOCYTES % (AUTO) 9.8 %; MEAN CORPUSCULAR HEMOGLOBIN 26.1 pg (27.0-31.0); MEAN CORPUSCULAR HGB CONC 30.5 g/dL (32.0-36.0); MEAN CORPUSCULAR VOLUME 85.7 fL (81.0-99.0); MEAN PLATELET VOLUME 10.2 fL (7.9-10.8); MONOCYTES # (AUTO) 0.5 10^3/uL (0.0-1.0); MONOCYTES % (AUTO) 8.9 %; NEUTROPHILS # (AUTO) 4.6 10^3/uL (1.5-6.6); NEUTROPHILS % (AUTO) 79.2 %; PLT - PLATELET COUNT 323 10^3/uL (130-450); RED BLOOD COUNT 3.29 10^6/uL (4.20-5.40); RED CELL DISTRIBUTION WIDTH 15.8 % (12.0-15.0); WHITE BLOOD COUNT 5.8 x10^3/uL (4.8-10.8)
[2019-03-09 04:58] LABS: CALCIUM 8.7 mg/dL (8.5-10.3); CREATININE 0.7 mg/dL (0.4-1.0)
[2019-03-09] MEDS: LEVOTHYROXINE 75 MCG TABLET PO SCH (06:12)
[2019-03-09] MEDS: metroNIDAZOLE 500 MG/100 ML 500 MG/100 ML BAG IV SCH (06:12)
[2019-03-09] MEDS: SODIUM CHLORIDE FLUSH 0.9% 10 ML SYRINGE IVP PRN ×2 (06:13→09:19)
[2019-03-09] MEDS: FERROUS SULFATE 325 MG TABLET PO SCH (08:16)
[2019-03-09] MEDS: busPIRone 5 MG TABLET PO SCH (08:16)
[2019-03-09] MEDS: SODIUM CHLORIDE FLUSH 0.9% 10 ML SYRINGE IVP SCH (08:17)
--- NOTE | 2019-03-09 08:56 | Discharge Plan ---
Discharge Plan Problem Reviewed?: Yes Disposition: Home, Self Care Condition: Stable Prescriptions: Ciprofloxacin HCl [Cipro] 500 mg PO BID #4 tablet Ferrous Sulfate 325 mg PO DAILY #30 tablet Metronidazole [Flagyl] 375 mg PO BID #4 capsule Diet: Regular Activity Restrictions: Activity as Tolerated Shower Restrictions: No Health Concerns: You were admitted with dehydration, anemia and a fever which likely caused you to faint. You got iv hydration, you are on Iron replacement pills, and you have been on antibiotics for possible abdominal source of infection, after you had radioablation treatments of the liver. You are being discharged to finish several more days of antibiotics, and a month of Iron tablets. Stay well-hydrated. Rest and have light activity. Resume your prehospital medications EXCEPT STAY OFF THE AMLODIPINE FOR 1 WEEK, DUE TO THE RECENT LOW BP. If you have new or worsening symptoms, call your PCP or come to the ER. Plan of Treatment: As above. Care Goals: Improvement of symptoms and stabilization in the goal. Assessment: Patient understands. Additional Instructions or Follow Up instructions: You should see your PCP in the next 5 to 10 days for a hospital follow-up and blood test to check the anemia. No Smoking: If you smoke, Please STOP! Call for help. Follow-up with: Bhumika Rosales PA-C [Primary Care Provider] -
[2019-03-09] MEDS ORDERED: LOSARTAN 50 MG TABLET PO SCH (09:00)
[2019-03-09] MEDS ORDERED: amLODIPine 5 MG TABLET PO SCH (09:00)
[2019-03-09 09:06] VITALS: BP 152/61
--- NOTE | 2019-03-09 09:16 | DISCHARGE SUMMARY ---
Discharge Summary Admit Date: 03/08/19 Discharge Date: 03/09/19 Discharging Provider: Dr Caterina Aguilar Primary Care Provider: EV Edmond Code Status: Attempt Resuscitation Condition at Discharge: Stable Discharge Disposition: 01 Home, Self Care - DIAGNOSES Admission Diagnoses: 1) Syncope 2) Fever 3) Anemia 4) Hepatocellular carcinoma Discharge Diagnoses with Status of Each Condition: See below - HPI History of Present Illness: From the admission H&P of Dr. Kar Alejandra: Patient is a 68 y/o female who presented to the ED with complain of passing out. She was at the dining table with family having a late lunch in celebration of when she felt like her head was hurting and felt heavy. As a result she rested her head on her arms on the table. Her family reports that she was not really responsive after that. When they tried to get her to stand by supporting her on each side, her legs just went limp. She had been tired most of the day and lately. She has poor appetite and appears pale. She has hepatocellular carcinoma and goes to [facility] for most of her care. She had the first radio ablation just before and the last one on Thursday02/28/19. Plan was to follow up in 3 months for reassessment. She has a planned endoscopy at [facility] in the near future. Family reports she is always nauseous and vomits every morning. Also that she had a temp of 101.6F at home 2 days ago. She denies chest pain, dyspnea or abdominal pain. She was given 1L of fluid in the ED. Orthostatics were checked and noted to be positive. She was given another liter of fluids but she still had significant orthostatics. As a result she was presented for admission. She was noted to be anemic in the ED but stool guaic was negative. Hemoglobin was 8.8 today and 11.7 6months ago. As a result of her persistent symptoms she was admitted for further treatment. - HOSPITAL COURSE Hospital Course: 1) Syncope She was felt to be dehydrated, was orthostatic, anemic and being on three BP meds also added to her syncope. Patient received IV hydration. There was no more nausea or vomiting while here, she tolerated a diet. She was started on iron tablets. Orthostatic vital signs were checked on the day of discharge and were normal (BP was 140's/70's). She was discharged with advice to have light activity and stay well-hydrated. She was advised to stop her daily amlodipine 5 mg daily. The Propanolol at 10 mg daily dose is trivial and she could continue with the daily Losartan dose. 2) Fever Since her chest x-ray and urinalysis were normal, she was empirically treated for a GI source of the fever, because of the recent procedure of radio-ablation treatment of the liver tumor. Abdominal CT imaging showed no sign of infection. She was given empiric Cipro and Flagyl. There was no fever on the second day. She was discharged to take 2 more days of Flagyl twice daily (the original dose prescribed was 375 mg twice daily, but her [facility] pharmacy did not carry that,thus it was changed by verbal order to 500 mg twice daily) and Cipro 500 mg twice daily, and advised a gentle diet, probiotics and to stay well hydrated. 3) Anemia Her admission hemoglobin was 8.8. The Hgb fluctuated between 9.2 and was 8.6 at the time of discharge. There was a small drop presumably from hemodilution from the IV hydration. She got no blod transfusions. Guaiac of her stool was negative. Serum B12 and folate levels were done that were normal and she had very low serum iron studies. She was started on oral iron tablets and discharged to take these daily for 1 month. She needs follow-up regarding her hemoglobin and was advised to see her PCP in the next week. 4) Hepatocellular carcinoma Abdominal CT imaging showed: Overall increased tumor burden within the liver, decreased size of the dominant mass in the inferior right hepatic lobe, unchanged soft tissue stranding along the inferomedial margin of the dominant mass compatible with tumor infiltration, increased size of multiple periportal lymph nodes suspicious for rojelio metastasis. Further management per Oncology. 5) Anxiety She was kept on her home medications for this. 6) Hypothyroidism Her TSH was acceptable at 3.94. She was kept on her home medications for this. 7) Severe protein-calorie malnutrition Dietitian reviewed her record and she has had < 50% of recommended intake for 2 weeks or more, and weight loss > 2% in week, >5% in one month or >7.5% in 3 months. Encourage to eat, and perhaps consider Marinol treatment. 8) Poor dentition Her physical exam shows very poor dentition with gum disease which needs attention. - ALLERGIES Allergies/Adverse Reactions: Allergies Allergy/AdvReac Type Severity Reaction Status Date / Time lisinopril Allergy Unknown Verified 03/08/19 11:11 Sulfa (Sulfonamide Allergy Unknown Verified 03/06/19 16:25 Antibiotics) codeine AdvReac Nausea Verified 03/06/19 16:25 - MEDICATIONS Home Medications: Ambulatory Orders Medication Instructions Recorded Confirmed Propranolol HCl 10 mg PO DAILY 08/09/13 03/07/19 HYDROcod/ACETAM 5/325 [[place] 5/325] 1 tab PO Q6H PRN #15 tablet 11/01/16 03/06/19 Levothyroxine Sodium [Synthroid] 75 mcg PO DAILY 11/01/16 03/07/19 busPIRone [Buspar] 10 mg PO DAILY 11/01/16 03/07/19 Ondansetron Odt [Zofran Odt] 4 mg TL Q6H PRN #10 tablet 09/06/18 03/06/19 Cyclobenzaprine HCl 5 mg PO TID PRN 03/06/19 03/06/19 Milk Thistle Seed Extract [Milk 175 mg ORAL DAILY 03/06/19 03/06/19 Thistle] Losartan Potassium 100 mg PO DAILY 03/07/19 03/07/19 amLODIPine [Norvasc] 5 mg PO DAILY 03/07/19 03/07/19 Ciprofloxacin HCl [Cipro] 500 mg PO BID #4 tablet 03/09/19 Ferrous Sulfate 325 mg PO DAILY #30 tablet 03/09/19 Metronidazole [Flagyl] 375 mg PO BID #4 capsule 03/09/19 - PHYSICAL EXAM AT DISCHARGE General Appearance: positive: Alert, Lethargic Eyes Bilateral: positive: Normal inspection ENT: positive: Other (External mucosa, very poor dentition with several teeth missing and gum disease evidence by visual inspection) Neck: positive: Nml inspection, No JVD Respiratory: positive: No respiratory distress Cardiovascular: positive: Regular rate & rhythm, No murmur Abdomen: positive: Non-tender, Nml bowel sounds Skin: positive: Warm Extremities: positive: No pedal edema Neurologic/Psychiatric: positive: Oriented x3, Other (Appears fatigued) - LABS Result Diagrams: 03/09/19 04:40 03/09/19 04:20 - DIAGNOSTIC IMAGING Diagnostic Imaging Results: Final report reviewed - SEPSIS Current Stage of Sepsis: Ruled out - FOLLOW UP Follow Up: See PCP next week. - TIME SPENT Time Spent in Discharge (Minutes): 50
[2019-03-09] MEDS: CIPROFLOXACIN 400 MG/200 ML 200 ML IV SCH (09:18)
== END 2019-03-09 11:03 | disposition home or self-care (01) | DRG 811 ==
LOC: EDUNIT# → ED 16:17 → MS2 20:17 → OBSVTOIN 03-07 21:35
PROVIDERS: ADMIT Internal Medicine; ATTEND Internal Medicine
DX: R55 Syncope and collapse (principal); D50.9 Iron deficiency anemia, unspecified; D64.9 Anemia, unspecified; E43 Unspecified severe protein-calorie malnutrition; R63.0 Anorexia; C22.0 Liver cell carcinoma; R50.82 Postprocedural fever; I95.1 Orthostatic hypotension; E86.0 Dehydration; Y84.2 Radiological procedure and radiotherapy as the cause of abnormal reaction of the patient, or of later complication, without mention of misadventure at the time of the procedure; Y92.538 Other ambulatory health services establishments as the place of occurrence of the external cause; I10 Essential (primary) hypertension; E03.9 Hypothyroidism, unspecified; Z68.26 Body mass index [BMI] 26.0-26.9, adult; F41.9 Anxiety disorder, unspecified; R11.2 Nausea with vomiting, unspecified; K06.9 Disorder of gingiva and edentulous alveolar ridge, unspecified; Z79.891 Long term (current) use of opiate analgesic; Z85.828 Personal history of other malignant neoplasm of skin
CPT/HCPCS: 36415 ×2; 51701 ×2; 71045 ×2; 74177 ×2; 80048 ×2; 80053 ×2; 80306 ×2; 80320 ×2; 81001; 81003 ×2; 82272 ×2; 82607 ×2; 82746 ×2; 83540 ×2; 83605 ×2; 83690 ×2; 83735 ×2; 84443 ×2; 84466 ×2; 85025 ×2; 87040 ×2; 87086; 93005 ×2; 93306 ×2; 96360 ×2; 96361 ×2; 99285 ×2; A9270; G0378; J7120; Q9967

== ENCOUNTER 2019-03-22 14:54 | Outpatient (CLI) | payer OTHER, MEDICARE ==
[2019-03-22] MEDS ORDERED: IOVERSOL 320 100 ML VIAL IVP ONE ×2 (15:00→15:22)
--- NOTE | 2019-03-23 17:37 | CT Report ---
Reason: LIVER CELL CARCINOMA Procedure Date: 03/22/2019 Accession Number: [id number] / [id number] Procedure: CT - ABDOMEN W/WO CPT Code: Final Report FULL RESULT: EXAM: CT ABDOMEN WITHOUT AND WITH CONTRAST EXAM DATE: 03/22/2019 03:27 PM. HISTORY: Liver cell carcinoma. COMPARISON: ABDOMEN/PELVIS W/ 03/06/2019 5:36 PM ABDOMEN/PELVIS W/ 09/06/2018 1:40 PM. TECHNIQUE: Routine helical CT imaging was performed through the abdomen before and after administration of IV contrast: Optiray 320 100 mL. Enteric contrast: No. Reconstruction: Coronal and sagittal. In accordance with CT protocol optimization, one or more of the following dose reduction techniques were utilized for this exam: automated exposure control, adjustment of mA and/or KV based on patient size, or use of iterative reconstructive technique. FINDINGS: Lung Bases: Mild atelectasis. Liver: Numerous peripherally enhancing liver masses. 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 Central liver dome 5.9 x 4.7 cm mass on image 16, previously 6.7 x 5.3 cm. 5.4 x 7.9 cm segment 4B mass, previously 6.6 x 9.5 cm. Segment 6 mass measuring 7.2 x 8.0 cm, previously measuring 8.3 x 9.1 cm. Ill-defined soft tissue density along inferior right liver lobe compatible with tumor infiltration as on prior study. Gallbladder/Bile Ducts: Prior cholecystectomy. Spleen: Normal. Pancreas: Normal. No masses or ductal obstruction. Adrenal Glands: Normal. Kidneys: Normal. No masses or hydronephrosis. Peritoneal Cavity/Bowel: Mildly prominent portal lymph node measures 1.2 cm short axis, previously 1.4 cm. No dilated bowel within the abdomen. Vasculature: Moderate atherosclerotic calcifications. No abdominal aortic aneurysm. Bones: Lumbar spine degenerative changes. Other: None. IMPRESSION: 1. Numerous liver masses, with interval decrease in size compared to 03/06/2019. 2. Soft tissue stranding compatible with tumor infiltration along inferior right liver lobe again noted. 3. Decreasing portal adenopathy. RADIA
== END 2019-03-22 14:55 | disposition home or self-care (01) ==
LOC: DI 14:54
PROVIDERS: ATTEND Student in an Organized Health Care Education/Training Program
DX: C22.0 Liver cell carcinoma (principal); R59.0 Localized enlarged lymph nodes; R07.81 Pleurodynia; J98.11 Atelectasis
CPT/HCPCS: 71111; 74170; Q9967

== ENCOUNTER 2019-03-22 15:11 | Outpatient (CLI) | payer OTHER, MEDICARE ==
--- NOTE | 2019-03-25 10:43 | XRAY Report ---
Reason: RIB PAIN RT SIDE,HEPATOCELLULAR CARCINOMA Procedure Date: 03/22/2019 Accession Number: [id number] / [id number] Procedure: XR - Ribs Bilat w/Chest 4 View CPT Code: Final Report FULL RESULT: EXAM: BILATERAL RIB RADIOGRAPHY EXAM DATE: 03/22/2019 03:51 PM. CLINICAL HISTORY: RIB PAIN RT SIDE,HEPATOCELLULAR CARCINOMA. COMPARISON: CHEST 1 VIEW 03/07/2019 7:46 PM ABDOMEN W/WO 03/22/2019 3:15 PM. TECHNIQUE: 1 view of the chest and 2 views of the ribs. FINDINGS: Bones: No fracture or bone lesion. DJD spine Lungs: Calcified granuloma right lung. Bibasilar atelectasis.. No pneumothorax. No pleural effusions. Mediastinum: Heart and mediastinal contours are unremarkable. Other: Contrast in the kidneys. IMPRESSION: Normal rib radiography. Bibasilar atelectasis RADIA
== END 2019-03-22 15:12 | disposition home or self-care (01) ==
LOC: DI 15:11
PROVIDERS: ATTEND Physician Assistant Medical
DX: R07.81 Pleurodynia (principal); C22.0 Liver cell carcinoma; J98.11 Atelectasis
CPT/HCPCS: 71111

== ENCOUNTER 2019-06-24 07:59 | Outpatient (CLI) | payer OTHER, MEDICARE ==
[2019-06-24 13:04] LABS: ALBUMIN 3.9 g/dL (3.2-5.5); BILIRUBIN,TOTAL 0.8 mg/dL (0.2-1.0); CALCIUM 10.1 mg/dL (8.5-10.3); CREATININE 0.9 mg/dL (0.4-1.0); MAGNESIUM 1.8 mg/dL (1.7-2.8); TOTAL PROTEIN 7.7 g/dL (6.7-8.2)
[2019-06-24 13:09] LABS: BASOPHILS # (AUTO) 0.1 10^3/uL (0.0-0.1); BASOPHILS % (AUTO) 1.3 %; EOSINOPHILS # (AUTO) 0.1 10^3/uL (0.0-0.7); EOSINOPHILS % (AUTO) 1.9 %; HGB - HEMOGLOBIN 12.9 g/dL (12.0-16.0); LYMPHOCYTES # (AUTO) 0.6 10^3/uL (1.5-3.5); MEAN CORPUSCULAR HEMOGLOBIN 26.8 pg (27.0-31.0); MEAN CORPUSCULAR HGB CONC 30.6 g/dL (32.0-36.0); MEAN CORPUSCULAR VOLUME 87.5 fL (81.0-99.0); MEAN PLATELET VOLUME 10.9 fL (7.9-10.8); MONOCYTES # (AUTO) 0.2 10^3/uL (0.0-1.0); MONOCYTES % (AUTO) 4.5 %; NEUTROPHILS # (AUTO) 4.4 10^3/uL (1.5-6.6); NEUTROPHILS % (AUTO) 80.9 %; PLT - PLATELET COUNT 411 10^3/uL (130-450); RED BLOOD COUNT 4.81 10^6/uL (4.20-5.40); RED CELL DISTRIBUTION WIDTH 15.9 % (12.0-15.0); WHITE BLOOD COUNT 5.4 x10^3/uL (4.8-10.8)
[2019-06-24 13:10] LABS: GLUCOSE, URINE (UA) NEGATIVE (NEGATIVE); KETONES,URINE (UA) TRACE mg/dL (NEGATIVE); LEUKOCYTE ESTERASE, URINE TRACE (NEGATIVE); NITRITE,URINE NEGATIVE (NEGATIVE); OCCULT BLOOD,URINE NEGATIVE (NEGATIVE); PH,URINE 6.5 PH (5.0-7.5); PROTEIN,URINE TRACE mg/dL (NEGATIVE); UROBILINOGEN,URINE 0.2 (NORMAL) E.U./dL (NORMAL)
[2019-06-24 13:11] LABS: CLARITY,URINE CLEAR (CLEAR)
[2019-06-24 13:14] LABS: BILIRUBIN,URINE NEGATIVE (NEGATIVE); ICTOTEST,URINE NEGATIVE
== END 2019-06-24 23:59 | disposition home or self-care (01) ==
LOC: LAB.WCP 07:59
PROVIDERS: ATTEND Student in an Organized Health Care Education/Training Program
DX: C22.0 Liver cell carcinoma (principal)
CPT/HCPCS: 36415; 80053; 81003; 83735; 84443; 85025

== ENCOUNTER 2019-06-24 14:42 | Outpatient (CLI) | payer OTHER, MEDICARE ==
[2019-06-24 14:56] LABS: INR 1.2 (0.8-1.2); PT - PROTHROMBIN TIME 13.4 secs (9.9-12.6)
== END 2019-06-24 14:43 | disposition home or self-care (01) ==
LOC: LAB 14:42
PROVIDERS: ATTEND Student in an Organized Health Care Education/Training Program
DX: C22.0 Liver cell carcinoma (principal)
CPT/HCPCS: 36415; 80053; 81003; 83735; 84443; 85025; 85610